=== PATIENT | female | born 1990 | race Caucasian/White ===

== ENCOUNTER 2021-07-30 09:15 | Outpatient (REF) | payer OTHER, SELFPAY ==
--- NOTE | 2021-07-30 09:18 | EMG_ITS ---
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 She has been using night splints, but they do not help much. Left hand is worse than the right. PHYSICAL EXAMINATION: She is alert and oriented with normal intellectual functions. Cranial nerves II through XII are normal. Muscle tone and strength are normal. No Tinel or Phalen sign. IMPRESSION: Carpal tunnel syndrome. Nerve conduction EMG study: Mild to moderate carpal tunnel syndrome bilaterally, slightly worse on the left. Normal EMG of the left C5-T1 innervated muscles. MD DELROY Perdomo/ANGUS / [id number]
== END 2021-07-30 09:16 | disposition home or self-care (01) ==
LOC: HO.NEURO 09:15
PROVIDERS: PCP Internal Medicine; Visit Provider Internal Medicine
DX: R20.2 Paresthesia of skin (principal)
CPT/HCPCS: 95885; 95913

== ENCOUNTER 2022-12-09 13:45 | Outpatient (AMB) | payer OTHER, SELFPAY ==
[2022-12-09 13:48] VITALS: BP 122/80; PULSE 88; O2SAT 99; BMI 28.2
--- NOTE | 2022-12-09 13:48 | A.OFFPC_ITS ---
Vital Signs 12/09/22 13:48 Height 5 ft 1 in Weight 149 lb BMI 28.2 BP 122/80 Blood Pressure Location Lt brachial Position Sitting Pulse 88 Pulse Source Pulse Oximeter Pulse Oximetry (%) 99 Oxygen Delivery Method Room Air Intake Visit Reasons: Annual PE Filtration Operator Required: No Accompanied by: Self / Same As Patient Allergies No Known Allergies Allergy (Verified 12/09/22 14:24) Medication List - Last Reconciled 12/09/22 by Brayan Lemons MD lisdexamfetamine (Vyvanse) 30 mg PO QAM 30 days Tobacco use date assessed: 12/09/22 Dental Screening Dental Screen Date: 12/09/22 Did you have a dental visit in the last 12 months?: Yes Did you have a dental problem in the last 6 months where you did not have access to dental care?: No Was dental information given to patient?: Patient has dentist HPI Annual PE HPI Details Patient comes in today for her annual physical examination States that she feels okay and that her ADHD symptoms remain adequately controlled on her current Rx She denies any headaches or dizziness Denies any chest pains, no SOB No nausea/vomiting, no abdominal pain although she has been experiencing recurrent heartburn symptoms lately Admits that she loves spicy foods and some of her heartburns are due to her dietary choices and is aware that cutting back on these can help alleviate some of her heartburns No change in bowel habits noted Denies any acute urinary symptoms Still has on and off numbness and tingling in her hands and occasional wrist pains - symptoms are slightly worse on the left side States that she tries to wear her wrist splints as much as she can to help manage her carpal tunnel symptoms Would also like to request for an order for a mammogram - states that her mother was diagnosed with breast cancer at 43 y/o She (mother) did test negative on her genetic testing but is still recommended to get her immediate female family members get screened for breast cancer earlier States that she is up-to-date with her yearly pap smear and 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 Mother Breast cancer Social History Housing: Apartment Alcohol intake: current Alcohol intake frequency: holidays/special occasions only Patient Tobacco Use Status: Never used Tobacco Second Hand Smoke Exposure: Yes service: No Current occupational status: employed Cognitive needs: No Hearing needs: No Vision needs: No Questionnaire PHQ-9 Over the last 2 weeks, how often have you been bothered by any of the following problems? 1. Little interest or pleasure in doing things: not at all 2. Feeling down, depressed, or hopeless: not at all 3. Trouble falling or staying asleep, or sleeping too much: not at all 4. Feeling tired or having little energy: not at all 5. Poor appetite or overeating: not at all 6. Feeling bad about yourself - or that you are a failure or have let yourself or your family down: not at all 7. Trouble concentrating on things, such as reading the newspaper or watching television: not at all 8. Moving or speaking so slowly that other people could have noticed. Or the opposite - being so fidgety or restless that you have been moving around a lot more than usual: not at all 9. Thoughts that you would be better off or of hurting yourself in some way: not at all Total score: 0 Depression Screening Interpretation: Negative [id number] - PHQ-9 Billing: Yes Source: Developed by Drs. Yuri Matt, Susanne Carlin, Pankaj Dickinson and colleagues, with an educational daniel from [employer]. Thrive Questionnaire Date Thrive assessed: 12/09/22 I am a: Patient What is your living situation today?: I have a steady place to live Within the past 12 months, did the food you bought not last and you didn't have the money to get more?: Never true Within the past 12 months, did you worry whether your food would run out before you got money to buy more?: Never true Do you have trouble paying for medicines?: No Do you have trouble getting transportation to medical appointments?: No Do you have trouble paying your heating and electricity bill?: No Do you have trouble taking care of your child, family member or friend?: No Do you have trouble with day-to-day activities such as bathing, preparing meals, shopping, managing finances, etc.?: No Are you currently unemployed and looking for a job?: No Are you interested in more education?: No Please select the resources that you would like help with: None Currently or been in a relationship where the following occur: no concerns reported AUDIT C Alcohol Use Questionnaire (AUDIT-C) 1. How often do you have a drink containing alcohol?: Monthly or less 2. How many drinks containing alcohol do you have on a typical day when you are drinking?: 1 or 2 3. How often do you have six or more drinks on one occasion?: Never Total Score: 1 Score Reviewed/Action Taken: Yes GREG-7 AMB Questionnaire GREG-7 Date GREG - 7 assessed: 12/09/22 Feeling nervous, anxious, or on edge: 1 = Several days Not being able to stop or control worryin = Several days Worrying too much about different things: 1 = Several days Trouble relaxin = Several days Being so restless that it is hard to sit still: 1 = Several days Becoming easily annoyed or irritable: 1 = Several days Feeling afraid as if something awful might happen: 1 = Several days Total GREG-7 score (0-4 normal; 5-9 mild; 10-14 moderate; 15-21 severe): 7 Source: Developed by Drs. Yuri Matt, Susanne Carlin, Pankaj Dickinson and colleagues, with an educational daniel from [employer]. Review of Systems Const Denies chills, Denies fatigue, Denies fever(s), Denies headache(s) and Denies malaise Eyes Denies blurry vision, Denies change in vision, Denies irritation and Denies itchy eyes ENT Denies dysphagia, Denies dizziness, Denies otalgia, Denies headache(s), Denies nasal congestion, Denies neck pain, Denies odynophagia, Denies sinus pain and Denies sore throat Card Denies chest pain, Denies rapid heart rate, Denies irregular heart rhythm, Denies palpitations and Denies dyspnea Resp Denies chest congestion, Denies cough, Denies dyspnea and Denies wheezing GI Denies abdominal pain, Denies bloating, Denies constipation, Denies dysphagia, Reports heartburn (on and off), Denies diarrhea, Denies nausea, Denies odynop hagia and Denies vomiting Denies hematuria, Denies urinary frequency, Denies dysuria, Denies urinary incontinence and Denies urinary urgency Musc Denies back pain, Reports arthralgias (occasional, in the wrists), Denies joint swelling, Denies muscle weakness, Denies neck pain, Reports numbness (on and off in both hands, L>R) and Reports tingling (on and off in both hands, L>R) Skin/Breast Denies breast pain, Denies breast mass, Denies change in pigmentation, Denies lesions, Denies rash and Denies unusual bruising Neuro Denies dizziness, Denies headache(s), Reports numbness (on and off in both hands, L>R), Reports tingling (on and off in both hands, L>R) and Denies paresthesias Psych Denies anxiety and Denies depression Endo Denies fatigue and Denies palpitations Jose E/Lymph Denies easy bruising Aller/Immun Denies itchy eyes and Denies wheezing Physical exam (Primary Care) Vital Signs: Last Vital Signs Pulse 88 12/09/22 13:48 BP 122/80 12/09/22 13:48 Pulse Ox 99 12/09/22 13:48 Oxygen Delivery Method Room Air 12/09/22 13:48 BMI result Body Mass Index 28.2 Tobacco/Smoking Status: Tobacco use Status Tobacco use date assessed 12/09/22 12/09/22 13:53 Patient Tobacco Use Status Never used Tobacco 12/09/22 13:53 PHQ-9: PHQ-9 Score PHQ-9: Total score 0 12/09/22 13:53 Depression Screening Interpretation: Negative Thrive Assessment: Date of Thrive Assessment Date Thrive assessed 12/09/22 12/09/22 13:53 Currently or been in a relationship where the following occur: no concerns reported Const General: no acute distress, alert and awake Orientation/consciousness: patient oriented x3 HENMT Head: Yes normocephalic and Yes atraumatic Ears: external ears normal, TM's normal bilaterally and EAC's normal General nose exam: No nasal discharge present Face and sinus: Yes normal facial exam and Yes sinuses nontender Teeth and gingiva: dentition normal Throat: Yes posterior oropharynx normal and Yes tonsils normal (no TP congest ion) Eyes Eyelids: Yes eyelids normal Conjunctivae: conjunctivae normal Pupils: Equal, round and reactive pupils present EOM: EOMs intact bilaterally Neck Neck: Yes no lymphadenopathy and Yes supple Thyroid: Thyroid normal Resp Auscultation: clear to auscultation bilaterally, no rales and no wheezes Cardio Rate: regular rate Rhythm: regular rhythm Heart sounds: no murmurs GI Palpation (GI): Soft to palpation, nontender and No hepatosplenomegaly present Auscultation: normal bowel sounds General: Yes no CVA tenderness Back/Spine/Pelvis Back: no CVA tenderness Thoracic/Lumbar Spine: thoracic and lumbar spine normal to inspection Skin Lesions: no lesions Rashes: no rashes Neuro General: patient oriented x3, moves all extremities, no focal motor deficits and CN's II-XI intact bilaterally Cranial nerves: Yes Equal, round and reactive pupils present Cognition (Neuro): normal cognition Gait exam (Neuro): Normal gait present Extrem General: Yes no clubbing, cyanosis or edema Right upper extremity: Extremity exam: right hand Details: normal ROM of fingers and no swelling Left upper extremity: wrist (mild tenderness; (+) Tinel's ) Assessment and Plan Assessment & Plan (1) Annual physical exam: Code(s): Z00.00 - Encounter for general adult medical examination without abnormal findings Plan: Check labs (2) Attention deficit hyperactivity disorder (ADHD): Code(s): F90.9 - Attention-deficit hyperactivity disorder, unspecified type Qualifiers: Attention deficit-hyperactivity disorder type: predominantly inattentive Qualified Code(s): F90.0 - Attention-deficit hyperactivity disorder, predominantly inattentive type Plan: Continue Vyvanse 30 mg Q AM - states that she continues to do well with her current Rx (3) Carpal tunnel syndrome, bilateral: Code(s): G56.03 - Carpal tunnel syndrome, bilateral upper limbs Plan: EMG & NCV done in July 2021 revealed (+) mild to moderate carpal tunnel syndrome bilaterally, slightly worse on the left side Patient is encouraged to continue wearing her wrist splints as often as possible during the day and when at work to help minimize her wrist and hand symptoms Will need to consider orthopedic referral if her symptoms get worse despite conservative management (4) Heartburn: Code(s): R12 - Heartburn Plan: Reports experiencing on and off heartburns lately Discussed dietary restrictions in GERD, and that continuing weight gain can also increase heartburn symptoms Advised that she can take OTC Famotidine PRN for now but should call for further evaluation if her heartburn symptoms continue to persist or get worse despite th e abovementioned strategies - may also need to consider referral to GI then (5) Anxiety: Code(s): F41.9 - Anxiety disorder, unspecified Plan: She was referred to psychiatry for counseling in the past States that she has been able to manage her symptoms adequately on her own lately so far (6) Overweight (BMI 25.0-29.9): Code(s): E66.3 - Overweight Plan: Reinforced diet/exercise as tolerated/lose weight (7) Breast cancer screening, high risk patient: Code(s): Z12.39 - Encounter for other screening for malignant neoplasm of breast Plan: States that her mother was diagnosed with breast cancer at age 43 y/o, which at least doubles her own risk for breast cancer as breast cancer that occur in the premenopausal years tend to be predominantly hereditary Will send her for screening mammogram GLORIA Plan To return in 1 year for her next annual physical examination Orders: Orders MM tomosynthesis screen imp BI Today Z12.39 - Encounter for other screening for malignant neoplasm of breast Vitamin B12 and Folate Today E53.8 - Deficiency of other specified B group vitamins, R20.2 - Paresthesia of skin, Z00.00 - Encounter for general adult medical examination without abnormal findings Comprehensive [place]. Panel Fast Today F90.9 - Attention-deficit hyperactivity disorder, unspecified type, R20.2 - Paresthesia of skin, Z00.00 - Encounter for general adult medical examination without abnormal findings Lipid Panel Today E78.00 - Pure hypercholesterolemia, unspecified, F90.9 - Attention-deficit hyperactivity disorder, unspecified type, R20.2 - Paresthesia of skin, Z00.00 - Encounter for general adult medical examination without abnormal findings TSH reflex Free T4 Today F90.9 - Attention-deficit hyperactivity disorder, unspecified type, R20.2 - Paresthesia of skin, Z00.00 - Encounter for general adult medical examination without abnormal findings Vitamin D 25-OH Total Today E55.9 - Vitamin D deficiency, unspecified, Z00.00 - Encounter for general adult medical examination without abnormal findings Complete Blood Count Auto Diff Today F90.9 - Attention-deficit hyperactivity disorder, unspecified type, R20.2 - Paresthesia of skin, Z00.00 - Encounter for general adult medical examination without abnormal findings UA CC w/rflx Micro + Cult Today R30.0 - Dysuria, Z00.00 - Encounter for general adult medical examination without abnormal findings Coding Level of Care Code Est Pt Prev Care [id number]) Diagnoses Annual physical exam Z00.00 Attention deficit hyperactivity disorder (ADHD) F90.0 Attention deficit-hyperactivity disorder type: predominantly inattentive Carpal tunnel syndrome, bilateral G56.03 Heartburn R12 Anxiety F41.9 Overweight (BMI 25.0-29.9) E66.3 Breast cancer screening, high risk patient Z12.39
== END 2022-12-09 14:39 | disposition home or self-care (01) ==
PROVIDERS: PCP Internal Medicine; Visit Provider Internal Medicine
DX: Z00.00 Encounter for general adult medical examination without abnormal findings (principal); F90.0 Attention-deficit hyperactivity disorder, predominantly inattentive type; G56.03 Carpal tunnel syndrome, bilateral upper limbs; F41.9 Anxiety disorder, unspecified; R12 Heartburn; E66.3 Overweight
CPT/HCPCS: 99395

== ENCOUNTER 2023-01-07 16:29 | Outpatient (REF) | payer OTHER, SELFPAY ==
--- NOTE | ~2023-01-07 | MM_ITS ---
EXAMINATION: MM SCREENING DIGITAL BREAST TOMOSYNTHESIS, BILATERAL CLINICAL INFORMATION: Screening. Asymptomatic. COMPARISON: Mammography: This is a baseline study TECHNIQUE: Digital breast tomosynthesis is performed in both the craniocaudal and mediolateral oblique views along with computer-aided detection (CAD). Synthesized 2D images are generated from the tomosynthesis. FINDINGS: The breasts are heterogeneously dense, which may obscure small masses (ACR BI-RADS breast composition Category c). There are no significant masses, abnormal calcifications, or other abnormalities. MM/MM tomosynthesis screening BI IMPRESSION: No mammographic evidence of malignancy. ASSESSMENT: BI-RADS BI-RADS 1 - Negative RECOMMENDATION: Routine annual mammography screening. 1 year F/U This examination should not preclude the clinical evaluation of a suspicious palpable abnormality. This patient's information was entered into a reminder system with a target due date for their next mammogram.
== END 2023-01-07 16:30 | disposition home or self-care (01) ==
LOC: HO.MAMMO 16:29
PROVIDERS: PCP Internal Medicine; Visit Provider Internal Medicine
DX: Z12.31 Encounter for screening mammogram for malignant neoplasm of breast (principal)
CPT/HCPCS: 77063; 77067

== ENCOUNTER → 2023-01-07 16:30 | Outpatient (BNV) | payer OTHER, SELFPAY | PROVIDERS: PCP Internal Medicine; Visit Provider Radiology Diagnostic Radiology | DX: Z12.31 Encounter for screening mammogram for malignant neoplasm of breast (principal) | CPT/HCPCS: 77063; 77067 ==

== ENCOUNTER 2024-02-02 17:04 | Outpatient (AMB) | payer OTHER, SELFPAY ==
[2024-02-02 17:06] VITALS: BP 120/82; PULSE 114; O2SAT 97; BMI 27.2
--- NOTE | 2024-02-02 17:06 | A.OFFPC_ITS ---
Vital Signs 02/02/24 17:06 Height 5 ft 1 in Weight 144 lb BMI 27.2 BP 120/82 Blood Pressure Location Lt brachial Position Sitting Pulse 114 H Pulse Source Pulse Oximeter Pulse Oximetry (%) 97 Oxygen Delivery Method Room Air Intake Visit Reasons: pe Tufting Creeler Required: No Accompanied by: Self / Same As Patient Allergies No Known Allergies Allergy (Verified 02/02/24 17:19) Medication List - Last Reconciled 02/02/24 by Brayan Lemons MD Vyvanse (lisdexamfetamine) 40 mg PO QAM 30 days NS Tobacco use date assessed: 02/02/24 Dental Screening Dental Screen Date: 02/02/24 Did you have a dental visit in the last 12 months?: Yes Did you have a dental problem in the last 6 months where you did not have access to dental care?: No Was dental information given to patient?: Patient has dentist HPI pe HPI Details Patient comes in today for her annual physical examination States that she's had increased cough and congestion for about a week now Relates that she coughs up some yellowish phlegm at times and that her chest feels congested and at times, somewhat tight She denies any fever or sore throat; denies any headaches or dizziness Denies any chest pains, no increased SOB No nausea/vomiting, no abdominal pain No change in bowel habits noted She denies any acute urinary symptoms States that her carpal tunnel symptoms on both wrists have been acting up a lot lately even though she tries to wear her wrist splints as much as she can - her hands feel numb at times and often tingly, especially towards the later part of the day Adds that she feels that her ADHD symptoms are still not adequately controlled on her current Rx even though her dose was raised a few months ago Would like to know what she should do - she is considering having her Rx changed back to Adderall that she was on years ago States that she also recently found out that her father had hemochromatosis when he was still alive She is up-to-date with her annual gynecology exam and pap smear - her gynecolog ist is Dr. Sachi Marley out in [place], [place] She is due for her annual mammogram [facility] Medical History Overweight (BMI 25.0-29.9) Carpal tunnel syndrome, bilateral Attention deficit hyperactivity disorder (ADHD) Surgical History History of tonsillectomy and adenoidectomy Family History Father Hemochromatosis Mother Breast cancer Social History Housing: Apartment Alcohol intake: current Alcohol intake frequency: holidays/special occasions only Patient Tobacco Use Status: Never used Tobacco Second Hand Smoke Exposure: Yes service: No Current occupational status: employed Cognitive needs: No Hearing needs: No Vision needs: No Questionnaire PHQ-9 Over the last 2 weeks, how often have you been bothered by any of the following problems? 1. Little interest or pleasure in doing things: not at all 2. Feeling down, depressed, or hopeless: not at all 3. Trouble falling or staying asleep, or sleeping too much: not at all 4. Feeling tired or having little energy: not at all 5. Poor appetite or overeating: not at all 6. Feeling bad about yourself - or that you are a failure or have let yourself or your family down: not at all 7. Trouble concentrating on things, such as reading the newspaper or watching television: not at all 8. Moving or speaking so slowly that other people could have noticed. Or the opposite - being so fidgety or restless that you have been moving around a lot more than usual: not at all 9. Thoughts that you would be better off or of hurting yourself in some way: not at all Total score: 0 Depression Screening Interpretation: Negative Depression Screening Done: Yes 20946 - PHQ-9 Billing: Yes Source: Developed by Drs. Yuri Matt, Susanne Carlin, Pankaj Dickinson and colleagues, with an educational daniel from [employer]. Thrive Questionnaire Date Thrive assessed: 02/02/24 I am a: Patient What is your living situation today?: I have a steady place to live Within the past 12 months, did the food you bought not last and you didn't have the money to get more?: Never true Within the past 12 months, did you worry whether your food would run out before you got money to buy more?: Never true Do you have trouble paying for medicines?: No Do you have trouble getting transportation to medical appointments?: No Do you have trouble paying your heating and electricity bill?: No Do you have trouble taking care of your child, family member or friend?: No Do you have trouble with day-to-day activities such as bathing, preparing meals, shopping, managing finances, etc.?: No Are you currently unemployed and looking for a job?: No Are you interested in more education?: No Please select the resources that you would like help with: None Currently or been in a relationship where the following occur: No concerns reported THRIVE Score: 0 AUDIT C Alcohol Use Questionnaire (AUDIT-C) 1. How often do you have a drink containing alcohol?: Monthly or less 2. How many drinks containing alcohol do you have on a typical day when you are drinking?: 1 or 2 3. How often do you have six or more drinks on one occasion?: Never Total Score: 1 Score Reviewed/Action Taken: Yes GREG-7 AMB Questionnaire GREG-7 Date GREG - 7 assessed: 02/02/24 Feeling nervous, anxious, or on edge: 1 = Several days Not being able to stop or control worryin = Several days Worrying too much about different things: 1 = Several days Trouble relaxin = Several days Being so restless that it is hard to sit still: 1 = Several days Becoming easily annoyed or irritable: 1 = Several days Feeling afraid as if something awful might happen: 1 = Several days Total GREG-7 score (0-4 normal; 5-9 mild; 10-14 moderate; 15-21 severe): 7 Source: Developed by Drs. Yuri Matt, Susanne Carlin, Pankaj Dickinson and colleagues, with an educational daniel from [employer]. Review of Systems Const Denies chills, Reports difficulty sleeping (lately), Denies fatigue, Denies fev er(s), Denies headache(s) and Denies malaise Eyes Denies blurry vision, Denies change in vision, Denies irritation and Denies itchy eyes ENT Denies dysphagia, Denies dizziness, Denies otalgia, Denies headache(s), Reports nasal congestion, Denies neck pain, Denies odynophagia, Denies sinus pain and Denies sore throat Card Denies chest pain, Denies rapid heart rate, Denies irregular heart rhythm, Denies palpitations and Denies dyspnea Resp Reports chest congestion (chest feels tight at times), Reports cough (recurrent - coughs up yellowish phlegm at times), Denies hemoptysis, Denies dyspnea and Denies wheezing GI Denies abdominal pain, Denies bloating, Denies constipation, Denies dysphagia, Denies heartburn, Denies diarrhea, Denies nausea, Denies odynophagia and Denies vomiting Denies hematuria, Denies urinary frequency, Denies dysuria, Denies urinary incontinence and Denies urinary urgency Musc Denies back pain, Denies arthralgias, Denies joint swelling, Denies muscle weakness, Denies neck pain, Reports numbness (on and off in both hands) and Reports tingling (on and off in both hands) Skin/Breast Denies breast pain, Denies breast mass, Denies change in pigmentation, Denies lesions, Denies rash and Denies unusual bruising Neuro Denies dizziness, Denies headache(s), Reports numbness (on and off in both hands), Reports tingling (on and off in both hands) and Denies paresthesias Psych Denies anxiety, Denies depression and Reports difficulty concentrating Endo Denies fatigue and Denies palpitations Jose E/Lymph Denies easy bruising Aller/Immun Denies itchy eyes and Denies wheezing Physical exam (Primary Care) Vital Signs: Last Vital Signs Pulse 114 H 02/02/24 17:06 BP 120/82 02/02/24 17:06 Pulse Ox 97 02/02/24 17:06 Oxygen Delivery Method Room Air 02/02/24 17:06 BMI result Body Mass Index 27.2 Tobacco/Smoking Status: Tobacco use Status Tobacco use date assessed 02/02/24 02/02/24 17:13 Patient Tobacco Use Status Never used Tobacco 02/02/24 17:13 PHQ-9: PHQ-9 Score PHQ-9: Total score 0 02/02/24 21:34 Depression Screening Interpretation: Negative Thrive Assessment: Date of Thrive Assessment Date Thrive assessed 02/02/24 02/02/24 17:13 Currently or been in a relationship where the following occur: No concerns reported Const General: no acute distress, alert and awake Orientation/consciousness: patient oriented x3 HENMT Head: Yes normocephalic and Yes atraumatic Ears: external ears normal, TM's normal bilaterally and EAC's normal General nose exam: No nasal discharge present Face and sinus: Yes normal facial exam and Yes sinuses nontender Teeth and gingiva: dentition normal Throat: Yes posterior oropharynx normal and Yes tonsils normal (no TP congestion) Eyes Eyelids: Yes eyelids normal Conjunctivae: conjunctivae normal Pupils: Equal, round and reactive pupils present EOM: EOMs intact bilaterally Neck Neck: Yes no lymphadenopathy and Yes supple Thyroid: Thyroid normal Resp Auscultation: no rales, rhonchi throughout, no wheezes and bronchial breath sounds bilateral Cardio Rate: regular rate Rhythm: regular rhythm Heart sounds: no murmurs GI Palpation (GI): Soft to palpation, nontender and No hepatosplenomegaly present Auscultation: normal bowel sounds General: Yes no CVA tenderness Back/Spine/Pelvis Back: no CVA tenderness Thoracic/Lumbar Spine: thoracic and lumbar spine normal to inspection Skin Lesions: no lesions Rashes: no rashes Neuro General: patient oriented x3, moves all extremities, no focal motor deficits and CN's II-XI intact bilaterally Cranial nerves: Yes Equal, round and reactive pupils present Cognition (Neuro): normal cognition Gait exam (Neuro): Normal gait present Extrem General: Yes no clubbing, cyanosis or edema Right upper extremity: wrist Details: tenderness Location: of the volar wrist; Tinel's positive Left upper extremity: wrist ((+) tenderness over the volar aspect of the wrist; Tinel's positive) Coding Level of Care Code Est Pt Prev Care 18-39y(92512) Diagnoses Annual physical exam Z00.00 Carpal tunnel syndrome, bilateral G56.03 Respiratory tract infection J98.8 Family history of hemochromatosis Z83.49 Heartburn R12 Attention deficit hyperactivity disorder (ADHD), predominantly inattentive type F90.0 Attention deficit-hyperactivity disorder type: predominantly inattentive Anxiety F41.9 Breast cancer screening, high risk patient Z12.39 Overweight (BMI 25.0-29.9) E66.3 Assessment & Plan Assessment & Plan (1) Annual physical exam: Code(s): Z00.00 - Encounter for general adult medical examination without abnormal findings Category: Medical Plan: Check labs She is up-to-date with her annual gynecology exam and pap smear - her correspondence coordinator is Dr. Sachi Marley out in [place], [place] She is due for her annual mammogram and this will be ordered (2) Carpal tunnel syndrome, bilateral: Code(s): G56.03 - Carpal tunnel syndrome, bilateral upper limbs Category: Medical Plan: EMG & NCV done in July 2021 revealed (+) mild to moderate carpal tunnel syn drome bilaterally, slightly worse on the left side Patient is encouraged to continue wearing her wrist splints as often as possible during the day and when at work to help minimize her wrist and hand symptoms Will consider referral to orthopedics if her symptoms get worse despite conservative management - patient states that she will think about this and will call if she decides to pursue orthopedic referral but she prefers to avoid surgery for now (3) Respiratory tract infection: Code(s): J98.8 - Other specified respiratory disorders Category: Medical Plan: Patient states that she has tested negative for COVID a couple of times lately 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, will go ahead and start her empirically on Azithromycin QD x 5 days Have advised her that she can take OTC cough/cold meds PRN for symptomatic relief (4) Family history of hemochromatosis: Code(s): Z83.49 - Family history of other endocrine, nutritional and metabolic diseases Category: Medical Plan: Will send patient for labs for hemochromatosis work up (5) Heartburn: Code(s): R12 - Heartburn Category: Medical Plan: Dietary restrictions reinforced Patient states that her reflux symptoms and heartburns have calmed down a lot for her by avoiding spicy foods altogether and she has not really had to take any antacids for a while now (6) Attention deficit hyperactivity disorder (ADHD): Code(s): F90.9 - Attention-deficit hyperactivity disorder, unspecified type Category: Medical Qualifiers: Attention deficit-hyperactivity disorder type: predominantly inattentive Qualified Code(s): F90.0 - Attention-deficit hyperactivity disorder, predominantly inattentive type Plan: Patient was doing well on Vyvanse 30 mg QD for years but dose was increased to 40 mg QD back in August 2023 when she reports difficulty adjusting to her work due to the medication no longer helping her enough States that she is still having trouble adjusting and does not feel that the 40 mg dose is helping and is looking for possible alternative Rx for her ADHD Have advised patient that the 40 mg dose she is currently on is still an average/middle dose for her Candice and have recommended that we try going up slowly on her dose until she either maxes out at the 70 mg daily dose ineffectively or she feels that her current dose then is helping adequately and if the 70 mg dose still does not work for her, then we will try changing her out to a different medication althogether she just picked up her current dose last week, will wait until her Rx is due for refill again in about 3 weeks before sending her Rx in for the 50 mg dose (7) Anxiety: Code(s): F41.9 - Anxiety disorder, unspecified Category: Medical Plan: She was referred for counseling last year but she was not able to get this started; would like to try getting referral for counseling again and due to her situation as well as where she works and lives right now (out in [place], [place]), would prefer that her therapy sessions are online Will refer her again to [facility] for therapy and counseling and will have the office try to help her get this set up according to her preference (8) Breast cancer screening, high risk patient: Code(s): Z12.39 - Encounter for other screening for malignant neoplasm of breast Category: Medical Plan: Will send patient for her annual mammogram Her mammogram last year was normal although it did mention that her breasts were heterogeneously dense, which may obscure small masses (ACR BI-RADS breast composition Category c) (9) Overweight (BMI 25.0-29.9): Code(s): E66.3 - Overweight Category: Medical Plan: Reinforced diet/exercise as tolerated/lose weight Plan To return in 1 year for her next annual physical examination Have advised patient that we will reach out to her if any of her labs and test results come back unusual or abnormal Orders: Orders Complete Blood Count Auto Diff Today D64.9 - Anemia, unspecified, Z00.00 - Encounter for general adult medical examination without abnormal findings Lipid Panel Today E78.00 - Pure hypercholesterolemia, unspecified, Z00.00 - Encounter for general adult medical examination without abnormal findings TSH reflex Free T4 Today E78.00 - Pure hypercholesterolemia, unspecified, Z 00.00 - Encounter for general adult medical examination without abnormal findings Vitamin D 25-OH Total Today E55.9 - Vitamin D deficiency, unspecified, Z00.00 - Encounter for general adult medical examination without abnormal findings Hemoglobin A1c Today R73.9 - Hyperglycemia, unspecified, Z00.00 - Encounter for general adult medical examination without abnormal findings DNA Analysis Hemochromatosis Today Z83.49 - Family history of other endocrine, nutritional and metabolic diseases IRON PROFILE Today Z83.49 - Family history of other endocrine, nutritional and metabolic diseases MM tomosynthesis screening BI Today Z12.31 - Encounter for screening mammogram for malignant neoplasm of breast Transferrin Today Z83.49 - Family history of other endocrine, nutritional and metabolic diseases Comprehensive [place]. Panel Fast Today E78.00 - Pure hypercholesterolemia, unspecified, Z00.00 - Encounter for general adult medical examination without abnormal findings UA CC w/rflx Micro + Cult Today R30.0 - Dysuria, Z00.00 - Encounter for general adult medical examination without abnormal findings Ferritin Today E83.119 - Hemochromatosis, unspecified, Z83.49 - Family history of other endocrine, nutritional and metabolic diseases Vitamin B12 and Folate Today E53.8 - Deficiency of other specified B group vitamins Referrals Psychiatry Referral F41.9 - Anxiety disorder, unspecified Medications: New azithromycin take 500 mg today (day 1), then 250 mg for 4 days (days 2-5) PO 6 tabs 0RF
== END 2024-02-02 17:41 | disposition home or self-care (01) ==
PROVIDERS: PCP Internal Medicine; Visit Provider Internal Medicine
DX: Z00.00 Encounter for general adult medical examination without abnormal findings (principal); G56.03 Carpal tunnel syndrome, bilateral upper limbs; J98.8 Other specified respiratory disorders; Z83.49 Family history of other endocrine, nutritional and metabolic diseases; R12 Heartburn; F90.0 Attention-deficit hyperactivity disorder, predominantly inattentive type; F41.9 Anxiety disorder, unspecified; Z12.39 Encounter for other screening for malignant neoplasm of breast; E66.3 Overweight

== ENCOUNTER → 2024-02-02 17:04 | Outpatient (BNVA) | payer OTHER, SELFPAY | PROVIDERS: PCP Internal Medicine; Visit Provider Internal Medicine ==

== ENCOUNTER 2024-06-30 09:19 | Outpatient (AMB) | payer OTHER, SELFPAY ==
--- NOTE | 2024-06-30 09:25 | MHC.PC.OV ---
Vital Signs 06/30/24 09:27 Height 5 ft 1 in Weight 143 lb 6 oz BMI 27.1 BP 136/74 Blood Pressure Location Lt brachial Position Sitting Respiration 16 Pulse 102 H Pulse Source Pulse Oximeter Temp 98.9 F Temp Source Oral Pulse Oximetry (%) 99 Oxygen Delivery Method Room Air Intake Visit Reasons: collarbone pain Intake Note: Patient is here to follow up on Collarbone pain. [employer] Superintendent Required: No Accompanied by: Self / Same As Patient Allergies No Known Allergies Allergy (Verified 07/02/24 20:30) Medication List - Last Reconciled 07/02/24 by TYSHAWN Stiles cyclobenzaprine 10 mg PO BEDTIME PRN dextroamphetamine-amphetamine 30 mg (Adderall) 30 mg PO BID meloxicam 15 mg PO DAILY sertraline 25 mg PO DAILY Tobacco use date assessed: 06/30/24 Dental Screening Dental Screen Date: 06/30/24 Did you have a dental visit in the last 12 months?: Yes Did you have a dental problem in the last 6 months where you did not have access to dental care?: No Was dental information given to patient?: Patient has dentist HPI collarbone pain HPI Details Patient is a 33-year-old female with significant past medical history of ADHD, anxiety, Raynaud's disease, family history of hemochromatosis and rheumatoid arthritis The patient is presenting today for below clavicle pain on both sides Reports that the pain feels like she is being poked with a sharp object Reports that the right side is worse-no discoloration or edema noted Patient reports that she works out but does not remember doing anything that might have caused any injury The patient has full range of motion in both arms With cross-arm and empty beer can test patient has pain right below the clavicle area Discussed with patient that this seemed to be muscular. We will order the patient meloxicam 15 mg daily and cyclobenzaprine 10 mg p.r.n. at bedtime Carpal tunnel: Patient reports that she was tested before and was noted to have carpal tunnel. Reports numbness and tingling in the fingers of both hands. She also has mild pain in the radial aspect of forearms proximal to her wrist bilaterally. will refer to the hand specialist Autoimmune conditions: Patient reports that she would like to be worked up for rheumatoid arthritis Reports that she has a strong family history. She also gets intermittent swollen joints of her fingers. She also has a history of Raynaud's disease Psoriasis: Patient also reports a history of psoriasis but says that this has been stable She is wondering if it is also possible that she is having psoriasis arthritis will order some inflammatory markers and advise when resulted The patient reports that she has been taking turmeric to decrease her inflammation naturally [facility] Medical History (Updated 06/30/24 @ 11:22 by TYSHAWN Stiles) Psoriasis Raynaud's disease Overweight (BMI 25.0-29.9) Carpal tunnel syndrome, bilateral Attention deficit hyperactivity disorder (ADHD) Surgical History History of tonsillectomy and adenoidectomy Family History Father Hemochromatosis Mother Breast cancer Social History Housing: Apartment Alcohol intake: current Alcohol intake frequency: holidays/special occasions only Patient Tobacco Use Status: Never used Tobacco e-Cigarette/Vaping Use: Never Used Second Hand Smoke Exposure: Yes service: No Current occupational status: employed 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 1. Little interest or pleasure in doing things: not at all 2. Feeling down, depressed, or hopeless: not at all 3. Trouble falling or staying asleep, or sleeping too much: not at all 4. Feeling tired or having little energy: not at all 5. Poor appetite or overeating: not at all 6. Feeling bad about yourself - or that you are a failure or have let yourself or your family down: not at all 7. Trouble concentrating on things, such as reading the newspaper or watching television: not at all 8. Moving or speaking so slowly that other people could have noticed. Or the opposite - being so fidgety or restless that you have been moving around a lot more than usual: not at all 9. Thoughts that you would be better off or of hurting yourself in some way: not at all Total score: 0 Depression Screening Interpretation: Negative Depression Screening Done: Yes 43970 - PHQ-9 Billing: Yes Source: Developed by Drs. Yuri Matt, Susanne Carlin, Pankaj Dickinson and colleagues, with an educational daniel from [employer]. Thrive Questionnaire Date Thrive assessed: 06/30/24 I am a: Patient What is your living situation today?: I have a steady place to live Within the past 12 months, did the food you bought not last and you didn't have the money to get more?: Never true Within the past 12 months, did you worry whether your food would run out before you got money to buy more?: Never true Do you have trouble paying for medicines?: No Do you have trouble getting transportation to medical appointments?: No Do you have trouble paying your heating and electricity bill?: No Do you have trouble taking care of your child, family member or friend?: No Do you have trouble with day-to-day activities such as bathing, preparing meals, shopping, managing finances, etc.?: No Are you currently unemployed and looking for a job?: No Are you interested in more education?: No Please select the resources that you would like help with: None Currently or been in a relationship where the following occur: No concerns reported THRIVE Score: 0 AUDIT C Alcohol Use Questionnaire (AUDIT-C) 1. How often do you have a drink containing alcohol?: Monthly or less 2. How many drinks containing alcohol do you have on a typical day when you are drinking?: 1 or 2 Total Score: 1 GREG-7 AMB Questionnaire GREG-7 Date GREG - 7 assessed: 06/30/24 Feeling nervous, anxious, or on edge: 2 = More than half the days Not being able to stop or control worryin = Several days Worrying too much about different things: 3 = Nearly every day Trouble relaxin = Nearly every day Being so restless that it is hard to sit still: 3 = Nearly every day Becoming easily annoyed or irritable: 0 = Not at all Feeling afraid as if something awful might happen: 1 = Several days Total GREG-7 score (0-4 normal; 5-9 mild; 10-14 moderate; 15-21 severe): 13 Source: Developed by Drs. Yuri Matt, Susanne Carlin, Pankaj Dickinson and colleagues, with an educational daniel from [employer]. GREG-7 Assessment Billing GREG-7 Assessment Tool: GREG-7 Assessment 39630 Review of Systems Const Details: Denies chills, Denies fatigue, Denies fever(s), Denies headache(s) and Denies weakness HEENT Denies change in vision, Denies dizziness, Denies headache(s), Denies hearing loss, Denies nasal congestion, Denies sinus pain, Denies sinus pressure and Denies sore throat Card Denies chest pain, Denies lightheadedness, Denies dyspnea and Denies other (palpitations) Resp Denies cough, Denies dyspnea and Denies wheezing GI Denies abdominal pain, Denies melena, Denies hematochezia, Denies change in bowel habits, Denies dyspepsia and Denies nausea Denies hematuria and Denies dysuria Musc Denies abnormal gait, + myalgias (below bilateral clavicles), Denies arthralgias, + numbness and tingling (bilateral hand fingers and at the radial aspect of both wrist Skin/Breast Denies rash, Denies unusual bruising and Denies wounds redness to right palm Neuro Denies abnormal gait, Denies dizziness, Denies headache(s), Denies memory loss, + numbness(fingers), Denies Sensory deficit (Neuro), + tingling (fingers) and Denies weakness Psych reports anxiety, Denies depression and Denies memory loss Endo Denies cold intolerance, Denies fatigue, Denies heat intolerance, Denies polydipsia and Denies polyuria Jose E/Lymph Denies easy bleeding and Denies easy bruising Aller/Immun Denies wheezing Physical exam (Primary Care) Vital Signs: Last Vital Signs Temp 98.9 F 06/30/24 09:27 Pulse 102 H 06/30/24 09:27 Resp 16 06/30/24 09:27 BP 136/74 06/30/24 09:27 Pulse Ox 99 06/30/24 09:27 Oxygen Delivery Method Room Air 06/30/24 09:27 BMI result Body Mass Index 27.1 Tobacco/Smoking Status: Tobacco use Status Tobacco use date assessed 06/30/24 06/30/24 09:28 Patient Tobacco Use Status Never used Tobacco 06/30/24 09:37 e-Cigarette/Vaping Use Never Used 06/30/24 09:37 PHQ-9: PHQ-9 Score PHQ-9: Total score 0 06/30/24 10:06 Depression Screening Interpretation: Negative Thrive Assessment: Date of Thrive Assessment Date Thrive assessed 06/30/24 06/30/24 09:28 Currently or been in a relationship where the following occur: No concerns reported Const Other: General: no acute distress, well developed, alert and awake Nutritional Appearance: well nourished Orientation/consciousness: patient oriented x3 HENMT Head: Yes normocephalic and Yes atraumatic Eyes Pupils: Equal, round and reactive pupils present and Pupil accommodation reflex normal EOM: EOMs intact bilaterally Neck Neck: Yes normal visual inspection, Yes no lymphadenopathy Thyroid: Thyroid normal Resp Effort & Inspection: normal respiratory effort Auscultation: clear to auscultation bilaterally Cardio Rate: regular rate Rhythm: regular rhythm Heart sounds: S1 normal heart sound present, S2 normal heart sound present, no gallops, no murmurs and no rubs GI Palpation (GI): Abdomen is soft and nontender Auscultation: normal bowel sounds General: Yes no CVA tenderness Back/Spine/Pelvis Back: no CVA tenderness Cervical Spine: cervical ROM normal and No Cervical spine tenderness Thoracic/Lumbar Spine: no tender Fingers of bilateral hands intermittent swelling, + joint pain Skin General: warm and dry. Normal skin color. Normal skin turgor Lesions: no lesions Rashes: right hand volar aspect with redness-reports that she had psoriasis and this area has been there since Trauma: no lacerations or abrasions Wounds: no wounds Nails: normal Neuro General: patient oriented x3, gait normal Cranial nerves: Yes Equal, round and reactive pupils present Cognition (Neuro): normal cognition Gait exam (Neuro): Normal gait present Extrem General: Yes normal to inspection, No edema and No calf tenderness Psych Appearance: grossly normal Affect: normal affect Attitude: cooperative Thought process: Normal thought process present Coding Level of Care Code Est Pt Level 4 (85390) Diagnoses Clavicle pain M89.8X1 Family history of rheumatoid arthritis Z82.61 Arthralgia of both hands M25.541; M25.542 Joint pain location: hand Laterality: bilateral Muscle pain M79.10 Carpal tunnel syndrome, bilateral G56.03 Additional Codes GREG-7 Assessment Billing - GREG-7 Assessment Tool: GREG-7 Assessment 30895 ([id number]) PHQ-9 - 17780 - PHQ-9 Billing: Yes ([id number]) Time Spent (min) 36 Assessment & Plan Assessment & Plan (1) Clavicle pain: Code(s): M89.8X1 - Other specified disorders of bone, shoulder Category: Medical Plan: Patient reports that she up Wednesday morning with pain below bilateral clavicle. Reports that it is worse on the right side. Patient reports that she does workout but does not remember doing anything that could have cause this type of injury. The patient has full range of motion in bilateral arms. No shoulder tenderness, no clavicle tenderness. Pain with range of motion. Discussed with patient that this is most likely muscular. Meloxicam 15 mg daily and cyclobenzaprine 10 mg at bedtime only p.r.n. ordered (2) Family history of rheumatoid arthritis: Code(s): Z82.61 - Family history of arthritis Category: Medical Plan: Patient reports that she gets intermittent swelling in the joints of her fingers on both hands. Reports that her fingers gets discolored at times. She reports history of Raynaud's disease as well. Patient would like to be worked up for RA due to her family history SHANE, RF, anti cyclic citrullinated, ESR, CRP. Ordered (3) Joint pain: Code(s): M25.50 - Pain in unspecified joint Category: Medical Qualifiers: Joint pain location: hand Laterality: bilateral Qualified Code(s): M25.541 - Pain in joints of right hand; M25.542 - Pain in joints of left hand Plan: SHANE, RF, anti cyclic citrullinated, ESR, CRP. Ordered. Meloxicam 15 mg daily (4) Muscle pain: Code(s): M79.10 - Myalgia, unspecified site Category: Medical Plan: Cyclobenzaprine 10 mg p.r.n. at bedtime (5) Carpal tunnel syndrome, bilateral: Code(s): G56.03 - Carpal tunnel syndrome, bilateral upper limbs Category: Medical Plan: We will refer the patient to the hand specialist Plan Consider referring the patient to rheumatology depending on the results of the labs ordered Orders: Orders SHANE Reflex Titer and Pattern 06/30/24 M25.50 - Pain in unspecified joint, Z82.61 - Family history of arthritis Erythrocyte Sedimentation Rate 06/30/24 M25.50 - Pain in unspecified joint, Z82.61 - Family history of arthritis CRP High Sensitivity 06/30/24 M25.50 - Pain in unspecified joint, Z82.61 - Family history of arthritis Rheumatoid Factor 06/30/24 M25.50 - Pain in unspecified joint, Z82.61 - Family history of arthritis Cyclic Citrullinated Peptide 06/30/24 M25.50 - Pain in unspecified joint, Z82.61 - Family history of arthritis Referrals Orthopedics Referral G56.03 - Carpal tunnel syndrome, bilateral upper limbs Medications: New meloxicam 15 mg PO DAILY 60 tabs 2RF M89.8X1 - Other specified disorders of bone, shoulder sertraline 25 mg PO DAILY 30 tabs 1RF F41.9 - Anxiety disorder, unspecified cyclobenzaprine 10 mg PO BEDTIME PRN 30 tabs 0RF muscle spasm M79.10 - Myalgia, unspecified site
[2024-06-30 09:27] VITALS: BP 136/74; PULSE 102; RESP 16; TEMP 37.2; O2SAT 99; BMI 27.1
--- OUTSIDE RECORDS SUMMARY | 2024-06-30 10:06 | XMS_ITS | Clinical Summary ---
Author Organization [facility] Address [address] [place] [address] Phone Care Team Providers Care Tank Setter Name Role Phone Liliana Gabriel SPECIAL EDUCATION CASE MANAGER Unavailable [phone] Brayan Lemons MD Primary Care Provider [phone] Allergies No known active allergies Medications Medication Sig Dispensed Refills Start Date End Date Status lisdexamfetamine (VYVANSE) 30 MG capsule Vyvanse 30 mg capsule Active Active Problems Problem Noted Date Diagnosed Date Menorrhagia with regular cycle 06/21/2020 Family history of breast cancer in mother 2020 Family History Medical History Relation Comments Heart disease Father Breast cancer Mother Breast cancer Paternal Grandmother Basal cell carcinoma Neg Hx Melanoma Neg Hx Skin cancer Neg Hx Squamous cell carcinoma Neg Hx Relation Status Comments Father Mother Paternal Grandmother Social History Tobacco Use Types Packs/Day Years Used Date Smoking Tobacco: Never Smokeless Tobacco: Never Tobacco Cessation:Counseling Given: Not Answered Alcohol Use Standard Drinks/Week Comments Yes 3 (1 standard drink = 0.6 oz pur e alcohol) Education Answer Date Recorded Are you interested in more education? Not on lenora e 08/21/2022 Are you concerned about learning? Not on file 08/21/2022 No 08/21/2022 No 08/21/2022 Digital Access Answer Date Recorded No 09/22/2022 No 09/22/2022 Reliable internet access at home? Not on file 09/22/2022 Device with a working camera? Not on file Sex and Gender Information Value Date Recorded Sex Assigned at Female 07/05/2020 2:28 PM EST Gender Identity Female 07/05/2020 2:28 PM EST Sexual Orientation Straight 07/05/2020 2: 28 PM EST Last Filed Vital Signs Vital Sign Reading Time Taken Comments Blood Pressure 132/80 05/01/2022 3:39 PM EST Pulse - - Temperature - - Respiratory Rate - - Oxygen Saturation - - Inhaled Oxygen Concentration - - Weight 67.6 kg (149 lb) 05/01/2022 3:39 PM EST Height 157.5 cm (5' 2 ) 05/01/2022 3:39 PM EST Body Mass Index 27.25 05/01/2022 3:39 PM EST Plan of Treatment Health Maintenance Due Date Last Done Comments DEPRESSION SCREENING 2001 HEPATITIS B VACCINES (2 of 3 - 19+ 3-dose series) 10/03/2014 09/05/2014 PAP SMEAR 06/21/2023 06/21/2020, 06/21/2020 INFLUENZA VACCINE (#1) 2023 7, 02/10/2016 COVID-19 VACCINE (2 - 2023-2 5 season) 2023 01/14/2021 Adult Td,Tdap Booster 02/09/2026 02/10/2016 HEPATITIS B SCREENING Completed 06/21/2020 HEPATITIS C SCREENING Completed 06/21/2020 HIV ONE-TIME SCREENING (18-6 5 YEARS) Completed 06/21/2020 SMOKING STATUS SCREENING (On ce After 26 Yrs) Completed 05/01/2022 HEPATITIS A VACCINES Aged Out No long er eligible based on patient's age to complete this topic HIB VACCINES Aged Out No longer eligi ble based on patient's age to complete this topic MENINGOCOCCAL VACCINES (ACWY) Aged Out No longer eligible based on patient's age to complete this topic PNEUMOCOCCAL VACCINES (0-49 years) Aged Out No longer eligible b ased on patient's age to complete this topic Medical Devices Not on file Procedures Procedure Name Priority Date/Time Associated Diagnosis Comments HEPATITIS C ANTIBODY, QUALITATIVE Routine 06/21/2020 3:00 PM EST Routine screening for STI (sexually transmitted infection) HEPATITIS B SURFACE ANTIGEN Routine 06/21/2020 3:00 PM EST Routine screening for STI (sexually transmitted infection) PAP TEST Routine 06/21/2020 12:00 AM EST from Last 3 Months or Most Recently Relevant to Health Maintenance Results * Hepatitis C antibody, qualitative (06/21/2020 3:00 PM EST) HCV ANTIBODY Negative Negative [facility] Comment:Test Methodology: Ad via Centaur XP 06/21/2020 3:00 PM EST 06/21/2020 5:20 PM EST Lakeisha Marley MD LAB BLOOD ORDERABLES Performing Organization Address [facility] de Phone Number [facility] [address] [place] [address] * Hepatitis B surface antigen (06/21/2020 3:00 PM EST) Pathologist [facility] HBV SURFACE ANTIGEN Negative Negative [facility] Comment:Test Methodology: Ad via [employer] XP 06/21/2020 3:00 PM EST 06/21/2020 5:22 PM EST Lakeisha Marley MD LAB BLOOD ORDERABLES Performing Organization Address [facility] Phone Number [facility] [address] [place] [address] * Pap Smear (06/21/2020 12:00 AM EST) 06/21/2020 06/24/2020 8:0 6 AM EST Narrative SEE NARRATIVE - 06/27/2020 10:54 AM EST [facility] [address] [place] [address] ? [employer] Cytology Report FINAL DIAGNOSIS A. ??CERVICAL, LIQUID BASED SPECIMEN: SPECIMEN ADEQUACY: Satisfactory for evaluation; transformation zone present. INTERPRETATION: NEGATIVE FOR INTRAEPITHELIAL LESION OR MALIGNANCY. This specimen was analyzed by the automated ThinPrep Imaging System ([employer] and the selected anderson were reviewed by a recreational assistant. ? Electronically Signed Out By: ??GILBERTO Carroll(ASCP) Cervical cytology is a screening test primarily for squamous cancers and precursors and has associated false-negative and false-positive results. ??New technologies such as liquid-based preparations may decrease but will not eliminate all false-negative results. ??Regular sampling and follow-up of unexplained clinical signs and symptoms are recommended to minimize false negative results. Interpretation of this material was performed at: [facility], Department of Pathology [address] [place] [address] ??[id number] Squeezer Operator: ??Efren Moscoso M.D. CLINICAL HISTORY Date of Last Menstrual Period: 06/04/2020 Other Clinical Conditions: Routine SPECIMEN SOURCE A: CERVICAL, LIQUID BASED SPECIMEN GROSS DESCRIPTION One ThinPrep vial received. Patient Name: ??ANAYELI SUN : ??1990 (Age: 29) Sex: ??F Institution: ??[facility] Location: ??[facility] Date of Collection: ??06/21/2020 Date of Reported: ??06/27/2020 10:54 Results to: Lakeisha Marley MD Lakeisha Marley MD CYTOLOGY ORDERABLES SEE NARRATIVE from Last 3 Months or Most Recently Relevant to Health Maintenance Care Teams Tank Setter Relationship Specialty Start Date End Date Brayan Lemons MD [address] [place] [address] [address] [place] [address] PCP - General Internal Medicine 02/20/20 Liliana Gabriel CNP [address] [place] [address] [email or web address] Dermatology 02/20/20 Additional Source Comments The information contained in this document represents components of the legal health record. It is not the complete legal health record.[facility]
--- OUTSIDE RECORDS SUMMARY | 2024-06-30 10:06 | XMS_ITS | Encounter Summary ---
Author Organization [facility] Address [address] [place] [address] Phone Care Team Providers Care Assembler Convertible Top Name Role Phone Liliana Gabriel CNP Unavailable Brayan Lemons MD Primary Care Provider [phone] Encounter Details Date Type Department Care Team (Late st Contact Info) Description 06/21/2020 Transcribe Orders [facility] LAB SPECIMEN [address] [place] [address] Lakeisha Marley MD [address] [place] [id number] [email or web address] Social History Tobacco Use Types Packs/Day Years Used Date Smoking Tobacco: Never Smokeless Tobacco: Never Alcohol Use Standard Drinks/Week Comments Yes 3 (1 standard drink = 0.6 oz pur e alcohol) Sex and Gender Information Value Date Recorded Sex Assigned at Female 07/05/2020 2:28 PM EST Gender Identity Female 07/05/2020 2:28 PM EST Sexual Orientation Straight 07/05/2020 2: 28 PM EST documented as of this encounter Plan of Treatment Not on file documented as of this encounter Visit Diagnoses Not on filedocumented in this encounter Care Teams Assembler Convertible Top Relationship Specialty Start Date End Date Brayan Lemons MD [address] [place] [id number] PCP - General Internal Medicine 02/20/20 Liliana Gabriel CNP [address] [place] [id number] [email or web address] Dermatology 02/20/20 documented as of this encounter Additional Source Comments The information contained in this document represents components of the legal health record. It is not the complete legal health record.[facility]
--- OUTSIDE RECORDS SUMMARY | 2024-06-30 10:06 | XMS_ITS | Clinical Summary ---
Author Organization [facility] Address [address] [place] [address] Care Team Providers Care Detective Chief Name Role Phone Unavailable Primary Care Provider Unavailabl e Allergies No known active allergies Medications lisdexamfetamine (VYVANSE) 30 mg capsule Take 30 mg by mouth every morning. Active Social History Tobacco Use Types Packs/Day Years Used Date Smoking Tobacco: Never Smokeless Tobacco: Never Alcohol Use Standard Drinks/Week Comments Yes 0 (1 standard drink = 0.6 oz pur e alcohol) occasional Comments Unknown Sex and Gender Information Value Date Recorded Sex Assigned at Not on file Legal Sex Female 3:20 PM EDT Gender Identity Not on file Sexual Orientation Not on file Last Filed Vital Signs Vital Sign Reading Time Taken Comments Blood Pressure 120/78 02/28/2019 7:30 PM EST Pulse 88 02/28/2019 7:30 PM EST Temperature 36.7 ??C (98 ??F) 02/28/2019 7:30 PM EST Respiratory Rate 16 02/28/2019 7:30 PM EST Oxygen Saturation 99% 02/28/2019 7:30 PM EST Inhaled Oxygen Concentration - - Weight - - Height - - Body Mass Index - - Plan of Treatment Health Maintenance Due Date Last Done Comments Hepatitis C Screening 07/03/2007 Periodic Health Exam 07/03/2007 Tetanus Diphtheria and Pertu ssis Vaccines (TD and TDaP) (1 - Tdap) 2008 PAP Screening 07/03/2019 Influenza (Seasonal) 11/25/2023 CoVid-19 Vaccine (2023-2 5 season) 2023 HIB Vaccines Aged Out No longer eligi ble based on patient's age to complete this topic HPV Vaccines Aged Out No longer eligi ble based on patient's age to complete this topic Meningococcal Vaccine Aged Out No jone primo eligible based on patient's age to complete this topic Pneumococcal Vaccine: Pediat rics (0 to 5 Years) and At-Risk Patients (6 to 64 Years) Aged Out No longer eligible b ased on patient's age to complete this topic Insurance O
== END 2024-06-30 10:10 | disposition home or self-care (01) ==
PROVIDERS: PCP Internal Medicine
DX: M89.8X1 Other specified disorders of bone, shoulder (principal); Z82.61 Family history of arthritis; M25.541 Pain in joints of right hand; M25.542 Pain in joints of left hand; M79.10 Myalgia, unspecified site; G56.03 Carpal tunnel syndrome, bilateral upper limbs

== ENCOUNTER → 2024-06-30 09:19 | Outpatient (BNVA) | payer OTHER, SELFPAY | PROVIDERS: PCP Internal Medicine | DX: M89.8X1 Other specified disorders of bone, shoulder (principal); M25.541 Pain in joints of right hand; M25.542 Pain in joints of left hand; M79.10 Myalgia, unspecified site; G56.03 Carpal tunnel syndrome, bilateral upper limbs; Z82.61 Family history of arthritis | CPT/HCPCS: 96127 ==

== ENCOUNTER 2024-09-01 14:49 | Outpatient (REF) | payer OTHER, SELFPAY ==
--- NOTE | 2024-09-01 14:52 | EMG_ITS ---
Chief complaint: Bilateral hand numbness. Previous EMG by Dr. Zhu showed bilateral Carpal Tunnel Syndrome, 2021. Reason for referral: Evaluate for Carpal Tunnel Syndrome Referred by: Carlos NEWTON Procedure done: Bilateral upper extremities NCS/EMG Precautions and/or limitations: None The limb temperature was monitored continuously and remained between 32-36 degrees C during the performance of the NCS. Nerve Conduction Studies Anti Sensory Summary Table ?Stim Site NR Onset (ms) Norm Onset (ms) Peak (ms) Norm Peak (ms) O-P Amp (?V) Norm O-P Amp Site1 Site2 Delta-0 (ms) Dist (cm) Jose (m/s) Norm Jose (m/s) Left Median Anti Sensory (2nd Digit) Wrist ? 3.9 4.9 <3.6 8.2 >10 Wrist 2nd Digit 3.9 14.0 36 Right Median Anti Sensory (2nd Digit) Wrist ? 4.1 5.2 <3.6 7.8 >10 Wrist 2nd Digit 4.1 14.0 34 Right Radial Anti Sensory (Thumb) Forearm ? 1.6 2.3 <3.1 25.6 Forearm Thumb 1.6 0.0 Left Ulnar Anti Sensory (5th Digit) Wrist ? 1.8 2.5 <3.7 41.9 >15.0 Wrist 5th Digit 1.8 14.0 78 Right Ulnar Anti Sensory (5th Digit) Wrist ? 2.1 2.8 <3.7 44.8 >15.0 Wrist 5th Digit 2.1 14.0 67 Motor Summary Table ?Stim Site NR Onset (ms) Norm Onset (ms) O-P Amp (mV) Norm O-P Amp iAmp (mV) Amp (1st) (%) Site1 Site2 Delta-0 (ms) Dist (cm) Jose (m/s) Norm Jose (m/s) Left Median Motor (Abd Poll Brev) Wrist ? 4.1 <3.9 6.7 >4.5 8.5 100.0 Elbow Wrist 3.5 17.0 49 >45 Elbow ? 7.6 10.9 14.1 162.7 Right Median Motor (Abd Poll Brev) Wrist ? 5.8 <3.9 6.5 >4.5 8.0 100.0 Elbow Wrist 3.5 17.0 49 >45 Elbow ? 9.3 6.5 8.6 100.0 Left Ulnar Motor (Abd Dig Minimi) Wrist ? 2.3 <3.0 7.6 >5 9.1 100.0 B Elbow Wrist 2.5 15.0 60 >45 B Elbow ? 4.8 8.1 9.9 106.6 A Elbow B Elbow 1.2 10.0 83 >45 A Elbow ? 6.0 7.8 9.5 102.6 Right Ulnar Motor (Abd Dig Minimi) Wrist ? 2.6 <3.0 8.1 >5 10.8 100.0 B Elbow Wrist 2.5 15.5 62 >45 B Elbow ? 5.1 8.1 10.8 100.0 A Elbow B Elbow 1.0 10.0 100 >45 A Elbow ? 6.1 8.1 10.7 100.0 EMG ?Side Muscle Nerve Root Ins Act Fibs Psw Amp Dur Poly Recrt Int Pat Comment Right 1stDorInt Ulnar C8-T1 Nml Nml Nml Nml Nml 0 Nml Complete Right FlexCarRad Median C6-7 Nml Nml Nml Nml Nml 0 Nml Complete Right Biceps Musculocut C5-6 Nml Nml Nml Nml Nml 0 Nml Complete Right Triceps Radial C6-7-8 Nml Nml Nml Nml Nml 0 Nml Complete Right Deltoid Axillary C5-6 Nml Nml Nml Nml Nml 0 Nml Complete Left 1stDorInt Ulnar C8-T1 Nml Nml Nml Nml Nml 0 Nml Complete Left FlexCarRad Median C6-7 Nml Nml Nml Nml Nml 0 Nml Complete Left Biceps Musculocut C5-6 Nml Nml Nml Nml Nml 0 Nml Complete Left Triceps Radial C6-7-8 Nml Nml Nml Nml Nml 0 Nml Complete Left Deltoid Axillary C5-6 Nml Nml Nml Nml Nml 0 Nml Complete FINDINGS: Bilateral median motor nerves showed prolonged distal latency, normal amplitude and slow conduction velocity. Bilateral median sensory nerves showed prolonged peak latency and small amplitude. All other nerves tested were within normal. Concentric needle EMG was performed in selected muscles of the bilateral upper extremities. Study did not reveal signs of electric abnormalities as shown in the table above. IMPRESSION: 1. This is an abnormal study. 2. There is electrodiagnostic evidence for bilateral moderate-severe median neuropathy at the wrist, consistent with carpal tunnel syndrome. 3. There is no electrodiagnostic evidence for ulnar neuropathy, brachial plexopathy, or cervical radiculopathy. Thank you for your kind referral. Tayler Lim MD, VALARIE Board Certified, [place] Board of [employer] Medicine and Rehabilitation (ABPMR) Board Certified, [place] Board of Electrodiagnostic Medicine (ABEM) CODIN [phone] x 2 MTDD
--- OUTSIDE RECORDS SUMMARY | 2024-09-01 14:52 | XMS_ITS | Encounter Summary ---
Author Organization [facility] Address [address] [place] [id number] Phone Care Team Providers Care Chief Bank Examiner Name Role Phone Liliana Gabriel PULP MILL TEAM LEADER Unavailable [phone] Brayan Lemons MD Primary Care Provider [phone] Encounter Details Date Type Department Care Team (Late Contact Info) Description 06/21/2020 Transcribe Orders [facility] LAB SPECIMEN [address] [place] [address] Lakeisha Marley MD [address] [place] [address] [id number] Social History Tobacco Use Types Packs/Day Years [...] as of this encounter Plan of Treatment Upcoming Encounters Date Type Department Care Team (Late Contact Info) Description 09/06/2024 3:45 PM EDT Office Visit [facility] [place] [place] [address] Lakeisha Marley MD [address] [place], [place] [phone] documented as of this encounter Visit Diagnoses Not on filedocumented in this encounter Care Teams Chief Bank Examiner Relationship Specialty Start Date End Date Brayan Lemons MD [address] [place] [address] [address] [place] [address] PCP - General Internal Medicine 02/20/20 Liliana Gabriel CNP [address] [place] [address] [email or web address] Dermatology 02/20/20 documented as of this encounter Additional Source Comments The information contained in this document represents components of the legal health record. It is not the complete legal health record.[facility]
--- OUTSIDE RECORDS SUMMARY | 2024-09-01 14:52 | XMS_ITS | Clinical Summary ---
Author Organization [facility] Address [address] [place] [address] Care Team Providers Care Header Operator Name Role Phone Unavailable Primary Care Provider [...] Health Maintenance Due Date Last Done Comments MMR Vaccines (1 of 1 - Stand cash series) 1990 Hepatitis C Screening 07/03/2007 Periodic Health Exam 07/03/2007 Tetanus Diphtheria and Pertu ssis Vaccines (TD and TDaP) (1 - Tdap) 2008 PAP Screening 07/03/2019 CoVid-19 Vaccine ( - 2023-2 5 season) 2023 Influenza (Seasonal) 11/24/2024 HIB Vaccines Aged Out No longer eligi [...] patient's age to complete this topic [facility]
--- OUTSIDE RECORDS SUMMARY | 2024-09-01 14:52 | XMS_ITS | Clinical Summary ---
Author Organization [facility] Address [address] [place] [address] Phone Care Team Providers Care Engine Setter Name Role Phone Liliana Gabriel BOX OFFICE CLERK Unavailable [phone] Brayan Lemons MD Primary Care Provider [phone] Allergies No known active allergies Medications Medication [...] 05/01/2022 3:39 PM EST Plan of Treatment Upcoming Encounters Date Type Department Care Team ([facility] st Contact Info) Description 09/06/2024 3:45 PM EDT [facility] Visit [facility] [address] [place] [address] Lakeisha Marley MD [address] [place], [place] [phone] [email or web address] Health Maintenance Due Date Last Done Comments DEPRESSION SCREENING 2001 PAP SMEAR 06/21/2023 06/21/2020, 06/21/2020 COVID-19 VACCINE (2 - 2023-2 5 season) 2023 01/14/2021 SCREENING FOR DIABETES 2024 Adult Td,Tdap Booster 02/09/2026 02/10/2016 HEPATITIS C SCREENING Completed 06/21/2020 HIV ONE-TIME [...] 3:00 PM EST) HCV ANTIBODY Negative Negative [facility] Comment:Test Methodology: Ad via [employer] XP 06/21/2020 3:00 PM EST 06/21/2020 5:20 PM EST Lakeisha Marley MD LAB BLOOD ORDERABLES [facility] [address] [place] [address] * Pap Smear (06/21/2020 12:00 AM EST) 06/21/2020 06/24/2020 8:0 6 AM EST Narrative SEE NARRATIVE - 06/27/2020 10:54 AM EST [facility] [address] [place] [address] ? PRODUCT DEVELOPMENT DIRECTOR Cytology Report FINAL DIAGNOSIS A. ??CERVICAL, LIQUID BASED SPECIMEN: SPECIMEN ADEQUACY: Satisfactory for evaluation; transformation zone present. INTERPRETATION: NEGATIVE FOR INTRAEPITHELIAL LESION OR MALIGNANCY. This specimen was analyzed by the automated ThinPrep Imaging System (S[employer] Edel.) and the selected anderson were reviewed by a audio director. ? Electronically Signed Out By: ??GILBERTO Carroll(ASCP) [...] Interpretation of this material was performed at: [facility], Department of Pathology [address] [facility] ??[id number] Avionics Integration Engineer: ??Efren Moscoso M.D. CLINICAL HISTORY Date of Last Menstrual Period: 06/04/2020 Other Clinical Conditions: Routine SPECIMEN SOURCE A: CERVICAL, LIQUID BASED SPECIMEN GROSS DESCRIPTION One ThinPrep vial received. Patient Name: ??ANAYELI SUN : ??1990 (Age: 29) Sex: ??F Institution: [facility] Location: ??[facility] Date of Collection: ??06/21/2020 Date of Reported: ??06/27/2020 10:54 Results to: Lakeisha Marley MD Lakeisha Marley MD CYTOLOGY ORDERABLES SEE NARRATIVE from Last 3 Months or Most Recently Relevant to Health Maintenance [place], Anayeli Personal/Family Self 1990 [address] [place] [address] [place], Anayeli Personal/Family Self 1990 [address] [place] [address] [place], Anayeli Personal/Family Self 1990 [address] [place] [address] [place], Anayeli Personal/Family Self 1990 [address] [place] [address] [place], Anayeli Personal/Family Self [address] [place] [address] Care Teams Engine Setter Relationship Specialty Start Date End Date Brayan Lemons MD [address] [place] [address] [address] [place] [address] PCP - General Internal Medicine 02/20/20 Liliana Gabriel CNP [address] [place] [id number] [email or web address] Dermatology 02/20/20 Additional Source Comments The information contained in this document represents components of the legal health record. It is not the complete legal health record.[facility]
== END 2024-09-01 14:50 | disposition home or self-care (01) ==
LOC: HO.NEURO 14:49
DX: R20.0 Anesthesia of skin (principal); R20.2 Paresthesia of skin
CPT/HCPCS: 95886; 95911

== ENCOUNTER → 2024-09-01 14:52 | Outpatient (BNV) | payer OTHER, SELFPAY | PROVIDERS: Visit Provider Physical Medicine & Rehabilitation | DX: G56.03 Carpal tunnel syndrome, bilateral upper limbs (principal) | CPT/HCPCS: 95886; 95911 ==

== ENCOUNTER 2024-10-11 13:56 | Outpatient (AMB) | payer OTHER, SELFPAY ==
--- NOTE | 2024-10-11 13:58 | MHC.OFFVIS ---
Vital Signs 10/11/24 13:58 Handedness Right Intake Visit Reasons: OV-B/L hand EMG/NCS follow up Intake Note: Anayeli is a 34 year old right hand dominant female who presents today for an EMG review of her bilateral upper extremities. EMG/NCS done on 09/01/24 IMPRESSION: 1. This is an abnormal study. 2. There is electrodiagnostic evidence for bilateral moderate-severe median neuropathy at the wrist, consistent with carpal tunnel syndrome. 3. There is no electrodiagnostic evidence for ulnar neuropathy, brachial plexopathy, or cervical radiculopathy. Allergies No Known Allergies Allergy (Verified 10/11/24 13:59) HPI HPI OV-B/L hand EMG/NCS follow up: Details: Anayeli is a 34 year old right hand dominant female who presents today for an EMG review of her bilateral upper extremities. Patient states she is experiencing significant numbness and tingling in the median nerve distribution of bilateral hands. Patient reports that she also frequently has pain that awakens her from sleep at night. No other acute complaints or concerns at this time. EMG/NCS done on 09/01/24 IMPRESSION: 1. This is an abnormal study. 2. There is electrodiagnostic evidence for bilateral moderate-severe median neuropathy at the wrist, consistent with carpal tunnel syndrome. 3. There is no electrodiagnostic evidence for ulnar neuropathy, brachial plexopathy, or cervical radiculopathy. 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 Good APB muscle firing and good finger cross. Vascular: Capillary refill brisk. ROM: Patient can make a fist and extend all their digits. Skin: No lacerations or abrasions noted. General: No ecchymosis. No erythema or evidence of infection. Assessment & Plan Assessment & Plan (1) Carpal tunnel syndrome, bilateral: Code(s): G56.03 - Carpal tunnel syndrome, bilateral upper limbs Category: Medical Plan 1. Carpal tunnel syndrome, right Symptoms intermittent, daily, worse at night I educated the patient about the condition. I discussed both operative and nonoperative treatment options. The patient would like to proceed with surgery. The risks and benefits of operative treatment were discussed with the patient and the patient wishes to proceed with surgery. These risks include, but are not limited to, risk of damage to blood vessels, nerves, tendons, infection, recurrence, incomplete relief of preoperative symptoms, persistent pain, possible need for further surgery, and the risks associated with regional blocks and/or anesthesia. Plan is to take the patient to the operating room at some point in the next few weeks for the following procedures: 1. Right carpal tunnel release under local All of the preoperative paperwork including the consent was discussed today. All of the patient's questions were answered in the clinic today. The patient understands that they will be in contact with our surgical garment inspector to discuss scheduling their procedure. Patient denies diabetes, blood thinners, asthma, heart issues, lung issues, kidney issues, or current smoking. Coding Level of Care Code Est Pt Level 4 (46657) Diagnoses Carpal tunnel syndrome, bilateral G56.03
--- OUTSIDE RECORDS SUMMARY | 2024-10-11 15:59 | XMS_ITS | Clinical Summary ---
Author Organization [facility] Address [address] [place] [address] Care Team Providers Care Forward Air Controller/Air Officer Name Role Phone Unavailable Primary Care Provider [...] 88 02/28/2019 7:30 PM EST Temperature 36.7 C (98 F) 02/28/2019 7:30 PM EST Respiratory Rate 16 [...] [id number]
== END 2024-10-11 14:41 | disposition home or self-care (01) ==
LOC: HO.HOS 13:57
DX: G56.03 Carpal tunnel syndrome, bilateral upper limbs (principal)
CPT/HCPCS: 99214

== ENCOUNTER 2025-04-13 11:33 | Outpatient (AMB) | payer OTHER, SELFPAY ==
[2025-04-13 11:35] VITALS: BP 144/98; PULSE 106; RESP 18; O2SAT 96; BMI 26.7
--- NOTE | 2025-04-13 11:35 | MHC.PC.OV ---
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 Operator Required: No Accompanied by: Self / Same As Patient Allergies No Known Allergies Allergy (Verified 04/13/25 11:55) Medication List - Last Reconciled 04/13/25 by TYSHAWN Stiles cyclobenzaprine 10 mg PO BEDTIME PRN dextroamphetamine-amphetamine 30 mg (Adderall) 30 mg PO BID meloxicam 15 mg PO DAILY sertraline 25 mg PO DAILY Tobacco use date assessed: 04/13/25 Dental Screening Dental Screen Date: 04/13/25 Did you have a dental visit in the last 12 months?: Yes Did you have a dental problem in the last 6 months where you did not have access to dental care?: No Was dental information given to patient?: Patient has dentist HPI annual exam HPI Details Dentist: up to date Eye: two years ago Snellen: Right: Left: Corrected vision: yes, glasses STI screening: Colonoscopy: Pap Smer:up to date about 6 months PHQ-9: Flu:not interested in it this year COVID: x2 Tdap:2015 Diet:regular Exercise: works out every, walks, and gym The patient is a 34 year old female presenting for a follow-up visit regarding a controlled substance prescription and annual physical. Her blood pressure was noted to be elevated upon arrival, which she attributed to nervousness, rushing, traffic, and consuming a lot of coffee. A recheck also showed a high reading. She takes Adderall, which may also contribute to elevated blood pressure. The patient has a family history of hypertension in her mother and hemochromatosis in her father. She also has a history of carpal tunnel syndrome and considered surgery but deferred it after an unsettling experience at the consultation. Regarding health maintenance, her last Pap smear was six months ago. She had a dental visit last year and an eye exam two years ago; she wears glasses only. She has not received the flu vaccine this year as it has made her feel worse in the past. She received two COVID-19 vaccines when they were first released. Her Tdap was in 2016 and is up to date. The patient follows a regular diet and is active, walking every day after work. Health Maintenance - Gynecological: Patient reports a Pap smear about six months ago. - Dental: Last dental exam was last year. - Vision: Last eye exam was two years ago. - Immunizations: Received two COVID-19 vaccines. Tdap is current, last given in 2016. Has not received the flu vaccine this year. - Lab Screening: Plan for fasting labs to screen for hemochromatosis due to family history. Previously ordered labs for rheumatology (SHANE, rheumatoid factor) will also be completed. - Cardiovascular: Blood pressure was elevated in the office; patient advised to monitor at home. Social History - Substance Use: Reports drinking a lot of coffee on the day of the visit. - Diet: Follows a regular diet. - Exercise: Reports being active and walks every day after work. 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 Results [facility] Medical History Psoriasis Raynaud's disease Overweight (BMI 25.0-29.9) Carpal tunnel syndrome, bilateral Attention deficit hyperactivity disorder (ADHD) Surgical History History of tonsillectomy and adenoidectomy Family History Father Hemochromatosis Mother Breast cancer Social History Housing: Apartment Alcohol intake: current Alcohol intake frequency: holidays/special occasions only Patient Tobacco Use Status: Never used Tobacco e-Cigarette/Vaping Use: Never Used Second Hand Smoke Exposure: Yes service: No Current occupational status: employed 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 1. Little interest or pleasure in doing things: several days 2. Feeling down, depressed, or hopeless: several days 3. Trouble falling or staying asleep, or sleeping too much: several days 4. Feeling tired or having little energy: several days 5. Poor appetite or overeating: several days 6. Feeling bad about yourself - or that you are a failure or have let yourself or your family down: not at all 7. Trouble concentrating on things, such as reading the newspaper or watching television: nearly every day 8. Moving or speaking so slowly that other people could have noticed. Or the opposite - being so fidgety or restless that you have been moving around a lot more than usual: more than half the days 9. Thoughts that you would be better off or of hurting yourself in some way: not at all Total score: 10 Depression Screening Interpretation: Positive Depression Screening Done: Yes Source: Developed by Drs. Yuri Matt, Susanne Carlin, Pankaj Dickinson and colleagues, with an educational daniel from [employer]. Thrive Questionnaire Date Thrive assessed: 04/13/25 I am a: Patient What is your living situation today?: I have a steady place to live Within the past 12 months, did the food you bought not last and you didn't have the money to get more?: Sometimes True Within the past 12 months, did you worry whether your food would run out before you got money to buy more?: Sometimes True Do you have trouble paying for medicines?: No Do you have trouble getting transportation to medical appointments?: No Do you have trouble paying your heating and electricity bill?: Yes Do you have trouble taking care of your child, family member or friend?: No Do you have trouble with day-to-day activities such as bathing, preparing meals, shopping, managing finances, etc.?: No Are you currently unemployed and looking for a job?: No Are you interested in more education?: Yes Please select the resources that you would like help with: Education Currently or been in a relationship where the following occur: I choose not to answer THRIVE Score: 3 AUDIT C Alcohol Use Questionnaire (AUDIT-C) 1. How often do you have a drink containing alcohol?: 2-3 times a week 2. How many drinks containing alcohol do you have on a typical day when you are drinking?: 1 or 2 3. How often do you have six or more drinks on one occasion?: Less than monthly Total Score: 4 GREG-7 AMB Questionnaire GREG-7 Date GREG - 7 assessed: 04/13/25 Feeling nervous, anxious, or on edge: 3 = Nearly every day Not being able to stop or control worryin = More than half the days Worrying too much about different things: 2 = More than half the days Trouble relaxin = More than half the days Being so restless that it is hard to sit still: 3 = Nearly every day Becoming easily annoyed or irritable: 1 = Several days Feeling afraid as if something awful might happen: 1 = Several days Total GREG-7 score (0-4 normal; 5-9 mild; 10-14 moderate; 15-21 severe): 14 Source: Developed by Drs. Yuri Matt, Susanne Carlin, Pankaj Dickinson and colleagues, with an educational daniel from [employer]. Review of Systems Const Details: Denies chills, Denies fatigue, Denies fever(s), Denies headache(s) and Denies weakness HEENT Denies change in vision, Denies dizziness, Denies headache(s), Denies hearing loss, Denies nasal congestion, Denies sinus pain, Denies sinus pressure and Denies sore throat Card Denies chest pain, Denies lightheadedness, Denies dyspnea and reports her heart beating fast once in a while Resp Denies cough, Denies dyspnea and Denies wheezing GI Denies abdominal pain, Denies melena, Denies hematochezia, Denies change in bowel habits, Denies dyspepsia and Denies nausea Denies hematuria and Denies dysuria Musc Denies abnormal gait, + myalgias (below bilateral clavicles), Denies arthralgias, + numbness and tingling (bilateral hand fingers and at the radial aspect of both wrist Skin/Breast Denies rash, Denies unusual bruising and Denies wounds redness to right palm Neuro Denies abnormal gait, Denies dizziness, Denies headache(s), Denies memory loss, + numbness(fingers), Denies Sensory deficit (Neuro), + tingling (fingers) and Denies weakness Psych reports anxiety, Denies depression and Denies memory loss Endo Denies cold intolerance, Denies fatigue, Denies heat intolerance, Denies polydipsia and Denies polyuria Jose E/Lymph Denies easy bleeding and Denies easy bruising Aller/Immun Denies wheezing Physical exam (Primary Care) Vital Signs: Last Vital Signs Pulse 106 H 04/13/25 11:35 Resp 18 04/13/25 11:35 BP 144/98 H 04/13/25 11:35 Pulse Ox 96 04/13/25 11:35 Oxygen Delivery Method Room Air 04/13/25 11:35 BMI result Body Mass Index 26.7 Tobacco/Smoking Status: Tobacco use Status Tobacco use date assessed 04/13/25 04/13/25 11:43 Patient Tobacco Use Status Never used Tobacco 04/13/25 11:43 e-Cigarette/Vaping Use Never Used 04/13/25 11:43 PHQ-9: PHQ-9 Score PHQ-9: Total score 10 04/15/25 22:57 Depression Screening Interpretation: Positive Thrive Assessment: Date of Thrive Assessment Date Thrive assessed 04/13/25 04/13/25 11:43 Currently or been in a relationship where the following occur: I choose not to answer Narrative Physical Exam - Vitals: Blood pressure was elevated on two consecutive checks. Heart rate was tachycardic on auscultation. - HEENT: Oropharynx is clear. - Neck: No abnormalities noted on thyroid palpation. - Lungs: Clear to auscultation bilaterally. - Abdomen: Soft and non-tender on palpation. Const Other: General: no acute distress, well developed, alert and awake Nutritional Appearance: well nourished Orientation/consciousness: patient oriented x3 HENMT Head: Yes normocephalic and Yes atraumatic Eyes Pupils: Equal, round and reactive pupils present and Pupil accommodation reflex normal EOM: EOMs intact bilaterally Neck Neck: Yes normal visual inspection, Yes no lymphadenopathy Thyroid: Thyroid normal Resp Effort & Inspection: normal respiratory effort Auscultation: clear to auscultation bilaterally Cardio Rate: sinus tachycardia Rhythm: regular rhythm Heart sounds: S1 normal heart sound present, S2 normal heart sound present, no gallops, no murmurs and no rubs GI Palpation (GI): Abdomen is soft and nontender Auscultation: normal bowel sounds General: Yes no CVA tenderness Back/Spine/Pelvis Back: no CVA tenderness Cervical Spine: cervical ROM normal and No Cervical spine tenderness Thoracic/Lumbar Spine: no tender Fingers of bilateral hands intermittent swelling, + joint pain Skin General: warm and dry. Normal skin color. Normal skin turgor Lesions: no lesions Rashes: right hand volar aspect with redness-reports that she had psoriasis and this area has been there since Trauma: no lacerations or abrasions Wounds: no wounds Nails: normal Neuro General: patient oriented x3, gait normal Cranial nerves: Yes Equal, round and reactive pupils present Cognition (Neuro): normal cognition Gait exam (Neuro): Normal gait present Extrem General: Yes normal to inspection, No edema and No calf tenderness Psych Appearance: grossly normal Affect: normal affect Attitude: cooperative Thought process: Normal thought process present Coding Level of Care Code Est Pt Prev Care 18-39y([id number]) Diagnoses Annual physical exam Z00.00 Carpal tunnel syndrome, bilateral G56.03 Arthralgia of both hands M25.541; M25.542 Joint pain location: hand Laterality: bilateral Family history of rheumatoid arthritis Z82.61 Overweight (BMI 25.0-29.9) E66.3 Family history of hemochromatosis Z83.49 Anxiety F41.9 Attention deficit hyperactivity disorder (ADHD), predominantly inattentive type F90.0 Attention deficit-hyperactivity disorder type: predominantly inattentive Raynaud's disease without gangrene I73.00 Raynaud?s-associated gangrene presence: without gangrene Time Spent (min) 37 Assessment & Plan Assessment & Plan (1) Annual physical exam: Code(s): Z00.00 - Encounter for general adult medical examination without abnormal findings Category: Medical (2) Carpal tunnel syndrome, bilateral: Code(s): G56.03 - Carpal tunnel syndrome, bilateral upper limbs Category: Medical (3) Joint pain: Code(s): M25.50 - Pain in unspecified joint Category: Medical Qualifiers: Joint pain location: hand Laterality: bilateral Qualified Code(s): M25.541 - Pain in joints of right hand; M25.542 - Pain in joints of left hand (4) Family history of rheumatoid arthritis: Code(s): Z82.61 - Family history of arthritis Category: Medical (5) Overweight (BMI 25.0-29.9): Code(s): E66.3 - Overweight Category: Medical (6) Family history of hemochromatosis: Code(s): Z83.49 - Family history of other endocrine, nutritional and metabolic diseases Category: Medical (7) Anxiety: Code(s): F41.9 - Anxiety disorder, unspecified Category: Medical (8) Attention deficit hyperactivity disorder (ADHD): Code(s): F90.9 - Attention-deficit hyperactivity disorder, unspecified type Category: Medical Qualifiers: Attention deficit-hyperactivity disorder type: predominantly inattentive Qualified Code(s): F90.0 - Attention-deficit hyperactivity disorder, predominantly inattentive type (9) Raynaud's disease: Code(s): I73.00 - Raynaud's syndrome without gangrene Category: Medical Qualifiers: Raynaud?s-associated gangrene presence: without gangrene Qualified Code(s): I73.00 - Raynaud's syndrome without gangrene Plan Plan Patient was informed and verbally consented to the use of an ambient scribe for clinic note documentation during this visit. 1. Elevated Blood Pressure Reading, Without Diagnosis Of Hypertension The patient's blood pressure was elevated on two readings during the visit. This is potentially attributable to white coat effect, anxiety, recent high caffeine intake, and use of Adderall. She was advised to purchase a home blood pressure monitor to check her readings at home and report them via the patient portal. The patient was educated on blood pressure goals, with a target of less than 130 mmHg systolic being ideal. If home readings remain high, a low-dose antihypertensive medication may be considered to allow for continued safe use of Adderall. 2. Encounter For General Adult Medical Examination The patient will proceed with fasting lab work. This will include a screen for hemochromatosis due to family history and previously ordered rheumatology labs including SHANE and rheumatoid factor. A follow-up is scheduled in three months for continued monitoring, as required for her controlled substance prescription. 3. Family History Of Other Specified Disorders Given the patient's paternal history of hemochromatosis, screening labs to evaluate iron and ferritin levels will be ordered. It was discussed that while the condition affects males more significantly, it does not exclude females. 4. Carpal Tunnel Syndrome The patient has a known history of carpal tunnel syndrome and previously deferred a surgical evaluation. She plans to complete the necessary pre-surgical blood work, which was previously ordered. The risk of permanent sensation loss with delayed surgical intervention was discussed. Discussion Notes I informed the patient that her blood pressure was elevated today and discussed potential contributing factors, including anxiety, caffeine, and her Adderall medication. I recommended she monitor her blood pressure at home to determine if this is a persistent issue and provided her with a pamphlet on blood pressure goals, highlighting a target of less than 130 mmHg systolic. We discussed the plan for fasting lab work to screen for hemochromatosis given her family history and to complete pending rheumatology labs. I also explained the policy requiring in-person visits every three months for controlled substance prescriptions, and we agreed to schedule her follow-up appointments accordingly. Patient Instructions - Purchase an automatic blood pressure cuff to monitor your blood pressure at home. - Keep a log of your readings and send them to us through the patient portal. - Go for your fasting blood work. Do not eat or drink anything other than water for 8 to 12 hours before the test. - Please make sure the lab performs all ordered tests, including the ones that were ordered for you in June. - Schedule a follow-up appointment in three months. Orders: Orders Comprehensive [place]. Panel Fast 04/14/25 E66.3 - Overweight, F41.9 - Anxiety disorder, unspecified, F90.0 - Attention-deficit hyperactivity disorder, predominantly inattentive type, G56.03 - Carpal tunnel syndrome, bilateral upper limbs, I73.00 - Raynaud's syndrome without gangrene, R12 - Heartburn, Z00.00 - Encounter for general adult medical examination without abnormal findings, Z82.61 - Family history of arthritis, Z83.49 - Family history of other endocrine, nutritional and metabolic diseases UA CC w/rflx Micro + Cult 04/14/25 E66.3 - Overweight, F41.9 - Anxiety disorder, unspecified, F90.0 - Attention-deficit hyperactivity disorder, predominantly inattentive type, G56.03 - Carpal tunnel syndrome, bilateral upper limbs, I73.00 - Raynaud's syndrome without gangrene, R12 - Heartburn, Z00.00 - Encounter for general adult medical examination without abnormal findings, Z82.61 - Family history of arthritis, Z83.49 - Family history of other endocrine, nutritional and metabolic diseases TSH reflex Free T4 04/14/25 E66.3 - Overweight, F41.9 - Anxiety disorder, unspecified, F90.0 - Attention-deficit hyperactivity disorder, predominantly inattentive type, G56.03 - Carpal tunnel syndrome, bilateral upper limbs, I73.00 - Raynaud's syndrome without gangrene, R12 - Heartburn, Z00.00 - Encounter for general adult medical examination without abnormal findings, Z82.61 - Family history of arthritis, Z83.49 - Family history of other endocrine, nutritional and metabolic diseases Vitamin D 25-OH Total 04/14/25 E66.3 - Overweight, F41.9 - Anxiety disorder, unspecified, F90.0 - Attention-deficit hyperactivity disorder, predominantly inattentive type, G56.03 - Carpal tunnel syndrome, bilateral upper limbs, I73.00 - Raynaud's syndrome without gangrene, R12 - Heartburn, Z00.00 - Encounter for general adult medical examination without abnormal findings, Z82.61 - Family history of arthritis, Z83.49 - Family history of other endocrine, nutritional and metabolic diseases DNA Analysis Hemochromatosis 04/14/25 E66.3 - Overweight, F41.9 - Anxiety disorder, unspecified, F90.0 - Attention-deficit hyperactivity disorder, predominantly inattentive type, G56.03 - Carpal tunnel syndrome, bilateral upper limbs, I73.00 - Raynaud's syndrome without gangrene, R12 - Heartburn, Z00.00 - Encounter for general adult medical examination without abnormal findings, Z82.61 - Family history of arthritis, Z83.49 - Family history of other endocrine, nutritional and metabolic diseases Ferritin 04/14/25 E66.3 - Overweight, F41.9 - Anxiety disorder, unspecified, F90.0 - Attention-deficit hyperactivity disorder, predominantly inattentive type, G56.03 - Carpal tunnel syndrome, bilateral upper limbs, I73.00 - Raynaud's syndrome without gangrene, R12 - Heartburn, Z00.00 - Encounter for general adult medical examination without abnormal findings, Z82.61 - Family history of arthritis, Z83.49 - Family history of other endocrine, nutritional and metabolic diseases Complete Blood Count Auto Diff 04/14/25 E66.3 - Overweight, F41.9 - Anxiety disorder, unspecified, F90.0 - Attention-deficit hyperactivity disorder, predominantly inattentive type, G56.03 - Carpal tunnel syndrome, bilateral upper limbs, I73.00 - Raynaud's syndrome without gangrene, R12 - Heartburn, Z00.00 - Encounter for general adult medical examination without abnormal findings, Z82.61 - Family history of arthritis, Z83.49 - Family history of other endocrine, nutritional and metabolic diseases Lipid Panel 04/14/25 E66.3 - Overweight, F41.9 - Anxiety disorder, unspecified, F90.0 - Attention-deficit hyperactivity disorder, predominantly inattentive type, G56.03 - Carpal tunnel syndrome, bilateral upper limbs, I73.00 - Raynaud's syndrome without gangrene, R12 - Heartburn, Z00.00 - Encounter for general adult medical examination without abnormal findings, Z82.61 - Family history of arthritis, Z83.49 - Family history of other endocrine, nutritional and metabolic diseases
--- OUTSIDE RECORDS SUMMARY | 2025-04-13 13:41 | XMS_ITS | Encounter Summary ---
Author Organization [facility] Address [address] [place] [id number] Phone Care Team Providers Care Type Proof Reproducer Name Role Phone Liliana Gabriel RN ONCOLOGY RESEARCH Unavailable [phone] Brayan Lemons MD Primary Care Provider [phone] Encounter Details Date Type Department Care Team (Late st Contact Info) Description 09/06/2024 Transcribe Orders [facility] Lab Main [address] [id number] Lakeisha Marley MD [address] [place] [address] [email or web address] Social History Tobacco Use Types Packs/Day Years [...] with a working camera? Not on file Comments No Sex and Gender Information Value Date Recorded Sex Assigned at Female 07/05/2020 2:28 PM EST Legal Sex Female 11:22 AM EDT Gender Identity Female 07/05/2020 2:28 PM EST Sexual Orientation Straight 07/05/2020 2: 28 PM EST documented as of this encounter Plan of Treatment Not on file documented as of this encounter Visit Diagnoses Not on filedocumented in this encounter Care Teams Type Proof Reproducer Relationship Specialty Start Date End Date Brayan Lemons MD [address] [place] [address] Dr De León [address] [place] [id number] PCP - General Internal Medicine 02/20/20 Liliana Gabriel CNP [address] [place] [id number] [email or web address] Dermatology 02/20/20 documented as of this encounter Additional Source Comments The information contained in this document represents components of the legal health record. It is not the complete legal health record.[facility]
--- OUTSIDE RECORDS SUMMARY | 2025-04-13 13:41 | XMS_ITS | Clinical Summary ---
Author Organization [facility] Address [address] [place] [address] Care Team Providers Care Order Picker Name Role Phone Unavailable Primary Care Provider Unavailabl e Medications lisdexamfetamine (VYVANSE) 30 MG capsule Take 30 mg by mouth every morning. 02/28/2019 Active Social History Tobacco Use Types Packs/Day Years Used Date Smoking Tobacco: Never Smokeless Tobacco: Never Alcohol Use Standard Drinks/Week Comments Yes 0 (1 standard drink = 0.6 oz pur e alcohol) Comments Unknown Sex and Gender Information Value Date Recorded Sex Assigned at Not on file Legal Sex Female 5:43 PM EST Gender Identity Not on file Sexual Orientation Not on file Plan of Treatment Health Maintenance Due Date Last Done Comments Blood Pressure 1989 Depression Screening 2001 Hepatitis C Screening 07/03/2007 DTaP,Tdap,and Td Vaccines (1 - Tdap) 2008 Pap Smear 2010 Cervical Cancer Screening 07/03/2019 HPV/Cotest 07/03/2019 COVID-19 Vaccine (2024-2 6 season) 2024 Influenza Vaccine (#1) 2024 Meningococcal B Vaccines Aged Out No longer eligible based on patient's age to complete this topic Meningococcal Vaccines Aged Out No lo nger eligible based on patient's age to complete this topic Pneumococcal Vaccine Aged Out No long er eligible based on patient's age to complete this topic
--- OUTSIDE RECORDS SUMMARY | 2025-04-13 13:41 | XMS_ITS | Clinical Summary ---
Author Organization [facility] Address [address] [place] [address] Phone Care Team Providers Care Search Strategist Name Role Phone Liliana Gabriel BOTTLE BOOTH ATTENDANT Unavailable [phone] Brayan Lemons MD Primary Care Provider [phone] Allergies No known active allergies Medications lisdexamfetamin e (VYVANSE) 30 MG capsule Vyvanse 30 mg capsule Active dextroamphetami ne-amphetamine (ADDERALL) 30 mg Tab tablet TAKE 1 TABLET BY MOUTH 2 TIMES A DAY ADMINISTER DOSES AT LEAST 4-6 HOURS APART Active Active Problems Problem Noted Date Diagnosed Date Carpal tunnel syndrome, bilateral 04/26/2021 Menorrhagia with regular cycle 06/21/2020 Family history [...] Sign Reading Time Taken Comments Blood Pressure 130/80 09/06/2024 4:20 PM EDT Pulse - - Temperature - - Respiratory Rate - - Oxygen Saturation - - Inhaled Oxygen Concentration - - Weight 62.6 kg (138 lb) 09/06/2024 4:20 PM EDT Height 157.5 cm (5' 2 ) 09/06/2024 4:20 PM EDT Body Mass Index 25.24 09/06/2024 4:20 PM EDT Plan of Treatment Health Maintenance Due Date Last Done Comments DEPRESSION SCREENING 2001 SCREENING FOR DIABETES 2024 INFLUENZA VACCINE (#1) 2024 01/25/2017, 2015 COVID-19 VACCINE ( season) 2024 01/14/2021 Adult Td,Tdap Booster 02/09/2026 02/10/2016 PAP SMEAR 09/07/2027 09/06/2024, 08/24, 06/21/2020, Additional history exists HEPATITIS C SCREENING Completed 06/21/2020, 021 HIV ONE-TIME SCREENING (18-65 YEARS) Completed 06/21/2020 SMOKING STATUS SCREENING (Once After 26 Yrs) Completed 05/01/2022 HEPATITIS A VACCINES Aged Out No long er eligible based on patient's age to complete this topic HIB VACCINES Aged Out No longer eligi ble based on patient's age to complete this topic MENINGOCOCCAL VACCINES (ACWY) Aged Out No longer eligible based on patient's age to complete this topic MENINGOCOCCAL VACCINES (B) Aged Out N o longer eligible based on patient's age to complete this topic PNEUMOCOCCAL VACCINES (0-49 years) Aged Out No longer eligible based on patient's age to complete this topic Medical Devices Not on file Procedures Procedure Name Priority Date/Time Associated Diagnosis Comments PAP TEST Routine 09/06/2024 12:00 AM EDT HEPATITIS C ANTIBODY, QUALITATIVE Routine 06/21/2020 3:00 PM EST Routine screening for STI (sexually transmitted infection) from Last 3 Months or Most Recently Relevant to Health Maintenance Results * Pap Test (09/06/2024 12:00 AM EDT) Report [facility] [address] [place] [address] Blood Bank Specialist: Chance Nguyen M.D YOGA INSTRUCTOR Cytology Report FINAL DIAGNOSIS A. CERVICAL, LIQUID BASED SPECIMEN: SPECIMEN ADEQUACY: Satisfactory for evaluation; transformation zone present. INTERPRETATION: NEGATIVE FOR INTRAEPITHELIAL LESION OR MALIGNANCY. This specimen was analyzed by the automated ThinPrep Imaging System (AGNITiO.) and manually rescreened by a manager fire and/or pathologist. Electronically Signed Out By: GILBERTO Lam(ASCP) Cervical cytology is a screening test primarily for squamous cancers and precursors and has associated false-negative and false-positive results. New technologies such as liquid-based preparations may decrease but will not eliminate all false-negative results. Regular sampling and follow-up of unexplained clinical signs and symptoms are recommended to minimize false negative results. Unless otherwise noted, interpretation of this material was performed at: [facility], Department of Pathology [address] [place] [address] CLINICAL HISTORY Date of Last Menstrual Period: 08/25/2024 Other Clinical Conditions: Screening Pap SPECIMEN SOURCE A: CERVICAL, LIQUID BASED SPECIMEN GROSS DESCRIPTION One ThinPrep vial received. Patient Name: ANAYELI SUN : 1990 (Age: 34) Sex: F Institution: [facility] Location: [facility] Date of Collection: 09/06/2024 Date of Reported: 09/18/2024 20:07 Results to: Lakeisha Marley MD [facility] Final Diagnosis A. CERVICAL, LIQUID BASED SPECIMEN: SPECIMEN ADEQUACY: Satisfactory for evaluation; transformation zone present. INTERPRETATION: NEGATIVE FOR INTRAEPITHELIAL LESION OR MALIGNANCY. This specimen was analyzed by the automated ThinPrep Imaging System (AGNITiO.) and manually rescreened by a manager fire and/or pathologist. [facility] Gross Description One ThinPrep vial received. [facility] Conversion Type (Conversion Source) 09/06/2024 09/07/2024 9:32 AM EDT us Lakeisha Marley MD CYTOLOGY ORDERABLES Edited R esult - Final Performing Organization Address [facility] [[email or web address]] Co de Phone Number [facility] [address] [place] [address] * Hepatitis C antibody, qualitative (06/21/2020 3:00 PM EST) HCV ANTIBODY Negative Negative [facility] Comment:Test Methodology: Ad via FlatClubaur XP 06/21/2020 3:00 PM EST 06/21/2020 5:20 PM EST us Lakeisha Marley MD LAB BLOOD BKR ORDERABLES Fin al Result Performing Organization Address [facility] de Phone Number [facility] [address] [place] [address] from Last 3 Months or Most Recently Relevant to Health Maintenance Insurance O POS EPO [employer] POS EPO O POS EPO O POS EPO O POS EPO O POS EPO POS EPO O POS EPO O POS EPO O POS EPO O POS EPO Care Teams Search Strategist Relationship Specialty Start Date End Date Brayan Lemons MD [address] [place] [address] [place] [address] PCP - General Internal Medicine 02/20/20 Liliana Gabriel CNP [address] [place] [address] [email or web address] Dermatology 02/20/20 Additional Source Comments The information contained in this document represents components of the legal health record. It is not the complete legal health record.[facility]
--- OUTSIDE RECORDS SUMMARY | 2025-04-13 13:41 | XMS_ITS | Encounter Summary ---
Author Organization [facility] Address [address] [place] [address] Phone Care Team Providers Care Furnace Caretaker Name Role Phone Liliana Gabriel FILM EDITOR SUPERVISOR Unavailable [phone] Brayan Lemons MD Primary Care Provider [phone] Encounter Details Date Type Department Care Team (Late st Contact Info) Description 09/06/2024 Transcribe Orders [facility] Lab Main [address] [phone] Lakeisha Marley MD [address] [place] [address] [email or web address] Social History Tobacco Use Types Packs/Day Years [...] on filedocumented in this encounter Care Teams Furnace Caretaker Relationship Specialty Start Date End Date Brayan Lemons MD [address] [place] [address] Dr eD León [address] [place] [address] PCP - General Internal Medicine 02/20/20 Liliana Gabriel CNP [address] [place] [address] [email or web address] Dermatology 02/20/20 documented as of this encounter Additional Source Comments The information contained in this document represents components of the legal health record. It is not the complete legal health record.[facility]
--- OUTSIDE RECORDS SUMMARY | 2025-04-13 13:41 | XMS_ITS | Clinical Summary ---
Author Organization [facility] (historical information prior to 01/27/2025 only) Address [address] [place] [address] Care Team Providers Care Photo Printer Name Role Phone Unavailable Primary Care Provider [...] Tdap) 2008 PAP Screening 07/03/2019 Influenza (Seasonal) 11/24/2024 CoVid-19 Vaccine ( - 2023-2 5 season) 2024 HIB Vaccines Aged Out No longer eligi [...] patient's age to complete this topic [facility]
--- OUTSIDE RECORDS SUMMARY | 2025-04-13 13:42 | XMS_ITS | Encounter Summary ---
Author Organization [facility] Address [address] [place] [address] Phone Care Team Providers Care Code Machine Operator Name Role Phone Liliana Gabriel CNP Unavailable [phone] Brayan Lemons MD Primary Care Provider [phone] Encounter Details Date Type Department Care Team (Late st Contact Info) Description 06/21/2020 Transcribe Orders [facility] Lab Main [address] [place] [address] Lakeisha Marley MD [address] [place] [address] [email or web address] Social History Tobacco Use Types Packs/Day Years Used Date Smoking Tobacco: Never Smokeless Tobacco: Never Alcohol Use Standard Drinks/Week Comments Yes 3 (1 standard drink = 0.6 oz pur e alcohol) Comments No Sex and Gender Information Value [...] on filedocumented in this encounter Care Teams Code Machine Operator Relationship Specialty Start Date End Date Brayan Lemons MD [address] [place] [address] [place] [address] PCP - General Internal Medicine 02/20/20 Liliana Gabriel CNP [address] [place] [address] [email or web address] Dermatology 02/20/20 documented as of this encounter Additional Source Comments The information contained in this document represents components of the legal health record. It is not the complete legal health record.[facility]
== END 2025-04-13 12:22 | disposition home or self-care (01) ==
LOC: HO.HMCH 11:34
DX: Z00.00 Encounter for general adult medical examination without abnormal findings (principal); G56.03 Carpal tunnel syndrome, bilateral upper limbs; M25.541 Pain in joints of right hand; M25.542 Pain in joints of left hand; Z82.61 Family history of arthritis; E66.3 Overweight; Z83.49 Family history of other endocrine, nutritional and metabolic diseases; F41.9 Anxiety disorder, unspecified; F90.0 Attention-deficit hyperactivity disorder, predominantly inattentive type; I73.00 Raynaud's syndrome without gangrene

== ENCOUNTER 2025-04-14 09:22 | Outpatient (REF) | payer OTHER, SELFPAY ==
--- OUTSIDE RECORDS SUMMARY | 2025-04-14 09:24 | XMS_ITS | Clinical Summary ---
Author Organization [facility] (historical information prior to 01/27/2025 only) Address [address] [facility] [address] [place] [address] Care Team Providers Care Treasury Analyst Name Role Phone Unavailable Primary Care Provider [...] patient's age to complete this topic Insurance [facility]
--- OUTSIDE RECORDS SUMMARY | 2025-04-14 09:24 | XMS_ITS | Clinical Summary ---
Author Organization [facility] Address [address] [place] [address] Care Team Providers Care Sheet Metal Layout Worker Name Role Phone Unavailable Primary Care Provider [...]
--- OUTSIDE RECORDS SUMMARY | 2025-04-14 09:24 | XMS_ITS | Encounter Summary ---
Author Organization [facility] Address [address] [place] [address] Phone Care Team Providers Care C D Area Supervisor Name Role Phone Liliana Gabriel CNP Unavailable [phone] Brayan Lemons MD Primary Care Provider [phone] Encounter Details Date Type Department Care Team (Late st Contact Info) Description 06/21/2020 Transcribe Orders [facility] Lab Main [address] [place] [address] Lakeisha Marley MD [address] [place] [address] [email or web address] Social History Tobacco Use Types Packs/Day Years [...] on filedocumented in this encounter Care Teams C D Area Supervisor Relationship Specialty Start Date End Date Brayan Lemons MD [address] [place] [address] [place] [address] PCP - General Internal Medicine 02/20/20 Liliana Gabriel CNP [address] [place] [address] [email or web address] Dermatology 02/20/20 documented as of this encounter Additional Source Comments The information contained in this document represents components of the legal health record. It is not the complete legal health record.[facility]
--- OUTSIDE RECORDS SUMMARY | 2025-04-14 09:24 | XMS_ITS | Encounter Summary ---
Author Organization [facility] Address [address] [place] [address] Phone Care Team Providers Care Shredder/Granulator Operator Name Role Phone Liliana Gabriel MANAGER CLIENT Unavailable [phone] Brayan Lemons MD Primary Care Provider [phone] Encounter Details Date Type Department Care Team (Late st Contact Info) Description 09/06/2024 Transcribe Orders [facility] Lab Main [address] [place] [phone] Lakeisha Marley MD [address] [place] [address] [email or web address] Social History Tobacco Use Types Packs/Day Years [...] on filedocumented in this encounter Care Teams Shredder/Granulator Operator Relationship Specialty Start Date End Date Brayan Lemons MD [address] [place] [address] Dr De León [address] [place] [address] PCP - General Internal Medicine 02/20/20 Liliana Gabriel CNP [address] [place] [address] [email or web address] Dermatology 02/20/20 documented as of this encounter Additional Source Comments The information contained in this document represents components of the legal health record. It is not the complete legal health record.[facility]
--- OUTSIDE RECORDS SUMMARY | 2025-04-14 09:24 | XMS_ITS | Encounter Summary ---
Author Organization [facility] Address [address] [place] [address] Phone Care Team Providers Care Charcoal Burner Beehive Kiln Name Role Phone Liliana Gabriel RECREATIONAL LEADER Unavailable [phone] Brayan Lemons MD Primary Care Provider [phone] Encounter Details Date Type Department Care Team (Late st Contact Info) Description 09/06/2024 Transcribe Orders [facility] Lab Main [address] [phone] Lakeisha Marley MD [address] [place] [address] Social History Tobacco Use Types Packs/Day Years [...] on filedocumented in this encounter Care Teams Charcoal Burner Beehive Kiln Relationship Specialty Start Date End Date Brayan Lemons MD [address] [place] [address] Dr De León [address] [place] [address] PCP - General Internal Medicine 02/20/20 Liliana Gabriel CNP [address] [place] [address] [email or web address] Dermatology 02/20/20 documented as of this encounter Additional Source Comments The information contained in this document represents components of the legal health record. It is not the complete legal health record.[facility]
--- OUTSIDE RECORDS SUMMARY | 2025-04-14 09:24 | XMS_ITS | Clinical Summary ---
Author Organization [facility] Address [address] [place] [address] Phone Care Team Providers Care Hospital Cook Name Role Phone Liliana Gabriel SR. CONSULTANT Unavailable [phone] Brayan Lemons MD Primary Care Provider [phone] Allergies No known active allergies Medications lisdexamfetamin [...] Pap Test (09/06/2024 12:00 AM EDT) Report [facility] [address] [place] [address] Committee Member: Chance Nguyen M.D PIPE FITTER AMMONIA Cytology Report FINAL DIAGNOSIS A. CERVICAL, LIQUID BASED SPECIMEN: SPECIMEN ADEQUACY: Satisfactory for evaluation; transformation zone present. INTERPRETATION: NEGATIVE FOR INTRAEPITHELIAL LESION OR MALIGNANCY. This specimen was analyzed by the automated ThinPrep Imaging System (NextDocs.) and manually rescreened by a sheet roller operator and/or pathologist. Electronically Signed Out By: GILBERTO [...] interpretation of this material was performed at: [facility], Department of Pathology [address] [address] CLINICAL HISTORY Date of Last Menstrual Period: 08/25/2024 Other Clinical Conditions: Screening Pap SPECIMEN SOURCE A: CERVICAL, LIQUID BASED SPECIMEN GROSS DESCRIPTION One ThinPrep vial received. Patient Name: ANAYELI SUN : 1990 (Age: 34) Sex: F Institution: [facility] Location: [facility] Date of Collection: 09/06/2024 Date of Reported: 09/18/2024 20:07 Results to: Lakeisha Marley MD [facility] Final Diagnosis A. CERVICAL, LIQUID BASED SPECIMEN: SPECIMEN ADEQUACY: Satisfactory for evaluation; transformation zone present. INTERPRETATION: NEGATIVE FOR INTRAEPITHELIAL LESION OR MALIGNANCY. This specimen was analyzed by the automated ThinPrep Imaging System (NextDocs.) and manually rescreened by a sheet roller operator and/or pathologist. [facility] Gross Description One ThinPrep vial received. [facility] Conversion Type (Conversion Source) 09/06/2024 09/07/2024 9:32 AM EDT us Lakeisha Marley MD CYTOLOGY ORDERABLES Edited R esult - Final Performing Organization Address [facility] Co de Phone Number [facility] [address] [place] [address] * Hepatitis C antibody, qualitative (06/21/2020 3:00 PM EST) HCV ANTIBODY Negative Negative [facility] Comment:Test Methodology: Ad via Impresstoaur XP 06/21/2020 3:00 PM EST 06/21/2020 5:20 PM EST us Lakeisha Marley MD LAB BLOOD BKR ORDERABLES Fin al Result Performing Organization Address [facility] de Phone Number [facility] [address] [place] [address] from Last 3 Months or Most Recently Relevant to Health Maintenance Insurance O POS EPO [employer] H[employer] POS EPO O POS EPO O POS EPO O POS EPO O POS EPO POS EPO O POS EPO O POS EPO O POS EPO O POS EPO Care Teams Hospital Cook Relationship Specialty Start Date End Date Brayan Lemons MD [address] [place] [address] [place] [address] PCP - General Internal Medicine 02/20/20 Liliana Gabriel CNP [address] [place] [address] [email or web address] Dermatology 02/20/20 Additional Source Comments The information contained in this document represents components of the legal health record. It is not the complete legal health record.[facility]
[2025-04-14 09:45] LABS: MANUAL DIFF FLAG NO
[2025-04-14 10:07] LABS: Hematocrit 41.1 % (37.0-47.0); Hemoglobin 13.8 g/dl (12.0-16.0); Imm Gran Abs Auto 0.03 X10*3/uL (0.00-0.03); Imm Gran Pct Auto 0.5 % (0.0-0.4); Lymphocytes Absolute Auto 1.5 X10*3/uL (1.2-4.9); Mean Corpuscular HGB Conc 33.6 g/dl (31.0-35.0); Mean Corpuscular Hemoglobin 31.7 pg (27.0-33.0); Mean Corpuscular Volume 94.3 fL (80.0-98.0); NRBC Abs Auto 0.000 X10*3/uL (0.0-0.012); NRBC Pct Auto 0.0 /100WBC (0.0-0.2); Platelet Count 341 X10*3/uL (160-400); Red Blood Count 4.36 X10*6/uL (4.20-5.50); White Blood Count 5.8 X10*3/uL (4.8-10.8)
[2025-04-14 10:32] LABS: Appearance Urine Clear; Glucose Urine UA Negative (Negative); PH 8.0 (5.0-9.0); Specific Gravity - Urine 1.015 (1.005-1.025)
[2025-04-14 11:00] LABS: Alanine Aminotransferase 25 U/L (0-31); Albumin Level 4.9 g/dL (3.5-5.0); Alkaline Phosphatase 65 U/L (39-117); Anion Gap 13 (12-20); Aspartate Amino Transferase 20 U/L (5-31); Blood Urea Nitrogen 10 mg/dL (9-16); Calcium 9.0 mg/dL (8.4-10.2); Carbon Dioxide 23 mmol/L (22-29); Chloride 106 mmol/L (96-108); Cholesterol 205 mg/dL (<200); Estimated Glomerular Filt Rate > 60; HDL Cholesterol 96 mg/dL (>40); Potassium 4.3 mmol/L (3.3-5.1); Sodium 138 mmol/L (135-145); Total Protein 7.2 g/dL (6.5-8.0); Triglycerides 73 mg/dL (<150)
[2025-04-14 11:07] LABS: Ferritin 53 ng/mL (10-122)
== END 2025-04-14 09:23 | disposition home or self-care (01) ==
LOC: HO.LAB 09:22
DX: Z00.00 Encounter for general adult medical examination without abnormal findings (principal); G56.03 Carpal tunnel syndrome, bilateral upper limbs; F41.9 Anxiety disorder, unspecified; F90.0 Attention-deficit hyperactivity disorder, predominantly inattentive type; I73.00 Raynaud's syndrome without gangrene; E66.3 Overweight; R12 Heartburn; Z82.61 Family history of arthritis; Z83.49 Family history of other endocrine, nutritional and metabolic diseases; Z13.21 Encounter for screening for nutritional disorder; Z13.0 Encounter for screening for diseases of the blood and blood-forming organs and certain disorders involving the immune mechanism
CPT/HCPCS: 36415; 80053; 80061; 81003; 82306; 82728; 84443; 85025